=== PATIENT | female | born 1970 | race Two or more races ===

== ENCOUNTER 2019-11-27 11:07 | Inpatient (IN) | payer MEDICAID, OTHER ==
[~2019-11-27] VITALS: Ht 162.6 cm; Wt 73.3 kg
[2019-11-27] MEDS ORDERED: cefTRIAXone SOD 1,000 MG VL IM ONE (14:45)
[2019-11-27] MEDS ORDERED: KETOROLAC TROMETH 30 MG/ML 1ML VIAL IV ONE (14:45)
[2019-11-27] MEDS ORDERED: cefTRIAXone 1GM/50ML D5W 50 ML IV ONE (15:00)
[2019-11-27] MEDS ORDERED: HYDROcodone-ACET 5/325MG TAB PO ONE (15:00)
[2019-11-27 16:24] LABS: Albumin 2.9 g/dL (3.4-5.0); Calcium 9.1 mg/dL (8.5-10.1); Potassium 3.1 mmol/L (3.5-5.1)
[2019-11-27 16:29] LABS: BUN/Creatinine Ratio 8.3; Bilirubin, Total 0.3 mg/dL (0.2-1.0); Total Protein 8.5 g/dL (6.4-8.2)
[2019-11-27 17:05] LABS: Basophils # (auto) 0.1 10 ^3/uL (0-0.2); Basophils % (auto) 0.8 % (0.0-2.0); Eosinophils # (auto) 0.1 10 ^3/uL (0-0.8); Eosinophils % (auto) 1.1 % (0.0-7.0); Hematocrit 34.4 % (36.0-46.0); Hemoglobin 11.3 g/dL (12.2-16.2); Lymphocytes % (auto) 12.6 % (10.0-50.0); Mean Corpuscular Hemoglobin 27.1 pg (28.0-32.0); Mean Corpuscular Hgb Conc. 32.8 g/dL (32.0-36.0); Mean Corpuscular Volume 82.8 fL (80.0-100.0); Monocytes # (auto) 0.7 10 ^3/uL (0-1.3); Monocytes % (auto) 9.5 % (0.0-12.0); Neutrophils # (auto) 5.8 10 ^3/uL (1.6-8.6); Platelet Count (auto) 338 10^3/uL (140-450); Red Blood Cells 4.15 10^6/uL (4.0-5.20); Red Cell Distribution Width 13.7 % (11.8-14.3); White Blood Cell 7.6 10^3/uL (4.4-10.8)
[2019-11-27] MEDS ORDERED: cloNIDine 0.2 mg/24hr 7DAY PATCH TD ONE (17:15)
[2019-11-27] MEDS ORDERED: SODIUM CHLORIDE 0.9% 2,000 ML IV ONE (17:15)
[2019-11-27 17:27] LABS: Urine Bacteria NONE SEEN /hpf (None Seen); Urine Blood 3+ /uL (Negative); Urine Mucus FEW (None Seen); Urine Specific Gravity 1.025 (1.001-1.035); Urine WBC 58 /hpf (0 - 5)
[2019-11-27] MEDS ORDERED: cloNIDine HCL 0.1 MG TAB PO ONE (17:45)
[2019-11-27] MEDS ORDERED: InsuLIN REG 1unit/0.01ml Soln (100units/ml) SC ONE (19:00)
[2019-11-27] MEDS ORDERED: POTASSIUM CHL 20 Meq TABLET PO ONE (21:00)
[2019-11-27] MEDS ORDERED: TEMAZEPAM 15 MG CAP PO PRN (21:00)
[2019-11-27] MEDS ORDERED: DEXTROSE (50%) 50ML SYRG IV PRN (21:00)
[2019-11-27] MEDS ORDERED: ACETAMINOPHEN 325 MG TAB PO PRN (21:00)
[2019-11-27] MEDS ORDERED: ONDANSETRON HCL 4 MG/2 ML VIAL IV PRN (21:00)
[2019-11-27 21:42] VITALS: BP 137/81
[2019-11-27 22:09] VITALS: BP 137/81
[2019-11-27] MEDS: FAMOTIDINE 20 MG TAB PO SCH (22:23)
[2019-11-27] MEDS: SODIUM CHLORIDE 0.9% 1,000 ML IV SCH (22:23)
[2019-11-27] MEDS: CLINDAMYCIN 600MG IV 50 ML IV SCH (22:23)
--- NOTE | 2019-11-27 23:01 | NUR ---
pt state will bring a list of her home medication tomorrow
[2019-11-27] MEDS: ACCU-CHEK COMFORT CURVE STRIP VI SCH (23:11)
[2019-11-27] MEDS: InsuLIN REG 1unit/0.01ml Soln (100units/ml) SC SCH (23:11)
--- NOTE | 2019-11-28 00:32 | NUR ---
wound culture and picture taken
--- NOTE | 2019-11-28 02:04 | NUR ---
end of shift note endorse pt care to assistant casino shift manager Karol PINEDA pt [id number], no s/s of distress or sob
--- NOTE | 2019-11-28 02:33 | NUR ---
Assumed Patient Care Report taken from Anabela PINEDA. Patient is AOx4 w/ HOB at 30 degrees. No s/s of distress or SOB noted. Patient has pain upon palpation to left outer labia. Left Labia is bright pink and swollen along with foul odor. Noted small opening on left labia weeping with purulent drainage noted on pad. Pad has now been changed. POC discussed with patient, patient verbally agreed to understanding. Will continue to monitor.
[2019-11-28] MEDS: cloNIDine HCL 0.1 MG TAB PO PRN ×2 (05:02→12:51)
[2019-11-28] MEDS: CLINDAMYCIN 600MG IV 50 ML IV SCH ×3 (05:49→22:30)
[2019-11-28] MEDS: ACCU-CHEK COMFORT CURVE STRIP VI SCH ×3 (05:49→18:05)
[2019-11-28] MEDS: InsuLIN REG 1unit/0.01ml Soln (100units/ml) SC SCH ×3 (05:59→18:07)
[2019-11-28 06:00] VITALS: BP 172/80
--- NOTE | 2019-11-28 07:45 | NUR ---
opening note assumed care of patient from noc rn. Patient is AOx4 no s/s of distress noted. Bed is in lowest locked position, call light within reach and side rails up x2. Updated patient on plan of care and patient verbalized understanding. Will continue to monitor.
[2019-11-28 07:47] LABS: Basophils # (auto) 0.1 10 ^3/uL (0-0.2); Basophils % (auto) 0.9 % (0.0-2.0); Eosinophils # (auto) 0.1 10 ^3/uL (0-0.8); Hematocrit 30.4 % (36.0-46.0); Lymphocytes # (auto) 1.7 10 ^3/uL (0.4-5.4); Lymphocytes % (auto) 22.5 % (10.0-50.0); Mean Corpuscular Hemoglobin 27.4 pg (28.0-32.0); Mean Corpuscular Hgb Conc. 33.1 g/dL (32.0-36.0); Mean Corpuscular Volume 82.8 fL (80.0-100.0); Monocytes # (auto) 0.8 10 ^3/uL (0-1.3); Monocytes % (auto) 11.2 % (0.0-12.0); Neutrophils # (auto) 4.7 10 ^3/uL (1.6-8.6); Neutrophils % (auto) 63.4 % (37.0-80.0); Platelet Count (auto) 310 10^3/uL (140-450); Red Blood Cells 3.67 10^6/uL (4.0-5.20); Red Cell Distribution Width 13.2 % (11.8-14.3); White Blood Cell 7.5 10^3/uL (4.4-10.8)
[2019-11-28 07:56] LABS: Calcium 8.1 mg/dL (8.5-10.1); Potassium 3.1 mmol/L (3.5-5.1)
[2019-11-28 07:58] LABS: BUN/Creatinine Ratio 11.4
[2019-11-28 09:00] VITALS: BP 156/87
--- NOTE | 2019-11-28 09:35 | NUR ---
Dr laila Smith at bedside, MD to transfer care to another MD.
--- NOTE | 2019-11-28 11:10 | NUR ---
physician rounding Dr. Ramachandran at bedside. MD updated patient on plan of care, patient verbalized understanding.
--- NOTE | 2019-11-28 11:12 | NUR ---
WOUND CARE NOTE: Wound care in to see patient per wound care request regarding "vaginal abscess". Bedside nurse took photograph of patient's wound upon admission for reference. Patient is 49 years old female admitted for Abscess. Patient is resting in bed in Rm. 293B. Patient is awake, alert and oriented. Patient is in no stated pain at this time, however she reported that her labial is painful to touch. Patient is ambulatory and self turning and repositioning. Her Gino score is 20. Patient's nurse, MIRIAM Tuttle and Dr. Junior at bedside to see patient. Noted patient's L labia majora is edematous and erythremic. There's multi white specks on pores, appears to be seropurulent drainage coming out from skin pores. Patient is ambulatory and advised to cleansed labial with mild soap and warm water,pat dry and use sanitary napkin and disposable underwear per MD order. Patient has pending surgical consult. RECOMMENDATION: Continue with BID/PRN cleaning using warm water and cover with sanitary pad to labial abscess per MD order,surgical consult, continue monitoring by wound care while patient is hospitalized. Addendum: 11/28/19 at 1709 by Ammy Urbina RN Amended: Links added.
--- NOTE | 2019-11-28 12:10 | NUR ---
efrain KRAUSE Placed page to Dr. Ramachandran awaiting call back.
--- NOTE | 2019-11-28 12:15 | NUR ---
Spoke with Spoke with DR. ortiz in her office, per MD she will in put orders for pain medication. Will follow through.
[2019-11-28] MEDS: cefTRIAXone 1GM/50ML D5W 50 ML IV SCH (12:18)
[2019-11-28] MEDS: FAMOTIDINE 20 MG TAB PO SCH ×2 (12:18→22:30)
[2019-11-28] MEDS: SODIUM CHLORIDE 0.9% 1,000 ML IV SCH ×2 (12:35→18:09)
--- NOTE | 2019-11-28 12:49 | NUR ---
efrain KRAUSE Placed page to Dr. Ramachandran awaiting call back.
--- NOTE | 2019-11-28 12:55 | NUR ---
Received call back Received call back from Dr. Ramachandran. Updated MD on patient status, new orders received. Will follow through.
[2019-11-28 13:00] VITALS: BP_SYST 125; BP_SYST 149; BP_DIAS 50; BP_DIAS 84
[2019-11-28] MEDS: HYDROcodone-ACET 5/325MG TAB PO PRN ×2 (13:06→19:53)
[2019-11-28] MEDS ORDERED: POTASSIUM CHL 20 Meq TABLET PO ONE (15:00)
--- NOTE | 2019-11-28 16:35 | NUR ---
efrain KRAUSE Placed page to Dr. Ramachandran regarding patient B/P awaiting call back.
[2019-11-28 16:58] VITALS: BP 182/90
--- NOTE | 2019-11-28 17:17 | NUR ---
paged graphic production artist paged graphic production artist regarding patients B/P. Awaiting call back.
--- NOTE | 2019-11-28 17:20 | NUR ---
RECEIVED CALL BACK Received call back from Provider, new orders received, will follow through.
[2019-11-28] MEDS ORDERED: amLODIPine BESYLATE 5 MG TAB PO ONE (17:30)
--- NOTE | 2019-11-28 17:40 | NUR ---
consult consolation for surgery unable to be placed, Dr. Iniguez not able to consult patient for cyst. Per MD Babar could be consulted, but not able to be consulted.
--- NOTE | 2019-11-28 19:20 | NUR ---
Opening Shift Note Assumed patient care from Alberto Shift RN. Patient is AOx4 no s/s of distress noted. Bed is in lowest locked position, call light within reach and side rails up x2. Updated patient on plan of care and patient verbalized understanding. Will continue to monitor.
[2019-11-28 22:00] VITALS: BP 152/79
[2019-11-29] MEDS: ACCU-CHEK COMFORT CURVE STRIP VI SCH ×4 (00:16→18:09)
[2019-11-29] MEDS: InsuLIN REG 1unit/0.01ml Soln (100units/ml) SC SCH ×4 (00:20→18:12)
[2019-11-29] MEDS: HYDROcodone-ACET 5/325MG TAB PO PRN ×3 (04:30→20:25)
[2019-11-29 05:00] VITALS: BP 164/86
[2019-11-29] MEDS: CLINDAMYCIN 600MG IV 50 ML IV SCH ×3 (05:40→22:25)
[2019-11-29] MEDS: cloNIDine HCL 0.1 MG TAB PO PRN (05:40)
[2019-11-29 06:47] LABS: Basophils # (auto) 0.1 10 ^3/uL (0-0.2); Eosinophils # (auto) 0.2 10 ^3/uL (0-0.8); Eosinophils % (auto) 2.3 % (0.0-7.0); Hematocrit 31.9 % (36.0-46.0); Hemoglobin 10.6 g/dL (12.2-16.2); Lymphocytes # (auto) 1.8 10 ^3/uL (0.4-5.4); Lymphocytes % (auto) 22.7 % (10.0-50.0); Mean Corpuscular Hemoglobin 27.5 pg (28.0-32.0); Mean Corpuscular Hgb Conc. 33.1 g/dL (32.0-36.0); Mean Corpuscular Volume 83.1 fL (80.0-100.0); Monocytes % (auto) 12.3 % (0.0-12.0); Neutrophils # (auto) 4.9 10 ^3/uL (1.6-8.6); Neutrophils % (auto) 61.7 % (37.0-80.0); Platelet Count (auto) 291 10^3/uL (140-450); Red Blood Cells 3.84 10^6/uL (4.0-5.20); Red Cell Distribution Width 13.7 % (11.8-14.3); White Blood Cell 7.9 10^3/uL (4.4-10.8)
[2019-11-29 06:59] LABS: Calcium 8.3 mg/dL (8.5-10.1); Magnesium 1.9 mg/dL (1.6-2.6); Potassium 3.1 mmol/L (3.5-5.1)
[2019-11-29 07:01] LABS: BUN/Creatinine Ratio 7.5
--- NOTE | 2019-11-29 07:20 | NUR ---
Assumed care Patient in bed AOx4 Chinese speaker. No s/s of distress noted. No pain reported. Patient updated on POC and to call for assistance as needed. She verbalized understanding and demonstration on how to use call fritz. Bed in lowest locked position, call light within reach, side rails x2 up. Will continue care.
[2019-11-29] MEDS: SODIUM CHLORIDE 0.9% 1,000 ML IV SCH ×2 (07:40→14:15)
[2019-11-29 09:00] VITALS: BP 143/68
[2019-11-29] MEDS: cefTRIAXone 1GM/50ML D5W 50 ML IV SCH (09:43)
[2019-11-29] MEDS: FAMOTIDINE 20 MG TAB PO SCH ×2 (09:43→22:24)
[2019-11-29] MEDS: amLODIPine BESYLATE 5 MG TAB PO SCH (09:44)
[2019-11-29 13:00] VITALS: BP 152/79
[2019-11-29] MEDS ORDERED: POTASSIUM CHL 20 Meq TABLET PO ONE (14:15)
[2019-11-29] MEDS ORDERED: LISINOPRIL 20 MG TAB PO ONE (14:15)
[2019-11-29] MEDS ORDERED: MAGNESIUM SULFATE 1GM/100ML 100 ML IV ONE (14:15)
--- NOTE | 2019-11-29 15:10 | NUR ---
Called [facility] pharmacy for Med-Rec Called [facility] at to obtain Med-Rec for patient. Pharmacy located in [place], [place]. Per pharmacist he will be faxing information as he is unable to share information over the phone at this time. Will be awaiting fax to update home medications on EMAR.
--- NOTE | 2019-11-29 15:23 | NUR ---
Nutrition Assessment Notes Please refer to link for full assessment notes. Est Energy needs: 7019-0431 kcals (20-23 kcal/kgBW) Est Protein needs: 59-74 gms/day (0.8-1.0 gm/kgBW) Will continue to monitor and reassess prn. Addendum: 11/29/19 at [address] Amended: Links added.
[2019-11-29 16:38] VITALS: BP 152/90
--- NOTE | 2019-11-29 19:30 | NUR ---
Opening Shift Note Patient is AOx4. No s/s of distress or SOB at this time. No pain noted at this time. NUTRITION INTERN translated and said, "Patient wants to leave tomorrow if she doesn't see the doctor about her infection." Per morning shift RN, patient was given education on the reason she is still in the hospital and about her antibiotics. Per RN she explained an OBGYN was called in to consult with her by tomorrow. POC discussed with patient using inspector plumbing, patient said, "okay." Bed locked in lowest position and Call light is within reach. Will continue to monitor.
[2019-11-29 21:46] VITALS: BP 150/78
[2019-11-30] MEDS: ACCU-CHEK COMFORT CURVE STRIP VI SCH ×4 (00:06→18:26)
[2019-11-30] MEDS: InsuLIN REG 1unit/0.01ml Soln (100units/ml) SC SCH ×4 (00:07→18:28)
[2019-11-30 05:00] VITALS: BP 157/82
[2019-11-30] MEDS: CLINDAMYCIN 600MG IV 50 ML IV SCH ×3 (05:43→22:11)
[2019-11-30] MEDS: HYDROcodone-ACET 5/325MG TAB PO PRN ×2 (05:43→17:09)
[2019-11-30 07:36] LABS: Magnesium 2.1 mg/dL (1.6-2.6); Potassium 3.3 mmol/L (3.5-5.1)
[2019-11-30] MEDS: cefTRIAXone 1GM/50ML D5W 50 ML IV SCH (08:35)
[2019-11-30] MEDS: FAMOTIDINE 20 MG TAB PO SCH ×2 (08:36→22:12)
[2019-11-30] MEDS: LISINOPRIL 20 MG TAB PO SCH (08:36)
[2019-11-30] MEDS: amLODIPine BESYLATE 5 MG TAB PO SCH (08:37)
[2019-11-30 08:39] VITALS: BP 185/91
[2019-11-30] MEDS: SODIUM CHLORIDE 0.9% 1,000 ML IV SCH (10:15)
[2019-11-30] MEDS: cloNIDine HCL 0.1 MG TAB PO PRN (12:58)
[2019-11-30 13:01] VITALS: BP 174/96
[2019-11-30] MEDS ORDERED: POTASSIUM CHL 20 Meq TABLET PO ONE (13:30)
[2019-11-30] MEDS ORDERED: IOHEXOL 300 MG/ML 100ML BOTTLE IJ ONE (14:42)
[2019-11-30] MEDS ORDERED: GABA300C10 PO (15:33)
[2019-11-30] MEDS ORDERED: AMLO5TAB15 PO (15:33)
[2019-11-30] MEDS ORDERED: METF-370 PO (15:33)
[2019-11-30] MEDS ORDERED: ATOR40TA52 PO (15:33)
[2019-11-30] MEDS ORDERED: METO25TA5 PO (15:33)
[2019-11-30] MEDS ORDERED: INSU1INJ19 SC (15:33)
--- NOTE | 2019-11-30 16:10 | NUR ---
Jordy WILDER AT BEDSIDE TO ASSESS PATIENT. Jordy ASSESSING PATIENTS INGUINAL ABSCESS. INFORMED PATIENT HAS NOT HAD A FEVER THIS DAY. INFORMED OF PATIENTS SYMPTOMS OF PAIN AND TENDERNESS AT SITE. Jordy WILDER SPEAKING WITH Jordy LEE STATING THAT THIS PATIENT REQUIRES HIGHER LEVEL OF CARE AND AGGRESSIVE ANTIBIOTICS AT THIS TIME. RECEIVED NEW ORDERS FOR STAT ABD/PELVIS CT. WILL FOLLOW THROUGH.
[2019-11-30 16:32] VITALS: BP 160/91
--- NOTE | 2019-11-30 16:38 | NUR ---
CALLED RADIOLOGY TO INFORM PATIENT IS READY FOR CT ABD/PELVIS.
--- NOTE | 2019-11-30 18:00 | NUR ---
PATIENT WHEELED DOWN VIA WHEELCHAIR TO RADIOLOGY FOR STAT CT BY SUPERVISOR ADVERTISING DISPATCH CLERKS.
[2019-11-30 18:21] VITALS: BP 157/71
--- NOTE | 2019-11-30 19:59 | NUR ---
RECEIVED PATIENT FROM DAY SHIFT RN. PATENT RESTING IN BED. NO S/S OF DISTRESS NOTED. C/O PAIN @ 4/10 AFTER MEDICATION ADMINISTERED EARLIER. REINFORCED SCHEDULE OF PAIN MANAGEMENT, WILL COME BACK FOR PAIN MEDICATION WHEN THE TIME IS DUE AND PER PATIENT REQUESTS. PATIENT VERBALIZED UNDERSTANDING. REDNESS AND SWELLING NOTED ON RIGHT INGUINAL AREA WITH LITTLE PUS OUT. POC INSTRUCTED AND ENCOURAGED PATIENT TO CALL FOR PRODUCT SAFETY COORDINATOR IF NEEDED. BED IN LOWEST POSITION WITH SIDE RAILS UP X 2. CALL GARCIA WITHIN REACH. CONTINUE TO MONITOR FOR CHANGES Q1H AND PRN.
[2019-11-30 22:00] VITALS: BP 148/85
[2019-11-30] MEDS ORDERED: INSULIN LANTUS (GLARGINE) 1 /0.01ml (100units/ml) SC SCH (22:00)
[2019-11-30] MEDS: ATORVASTATIN 20 MG TAB PO SCH (22:11)
[2019-11-30] MEDS: METOPROLOL TARTRATE 25 MG TAB PO SCH (22:12)
[2019-12-01] MEDS: ACCU-CHEK COMFORT CURVE STRIP VI SCH ×4 (00:09→18:02)
[2019-12-01] MEDS: InsuLIN REG 1unit/0.01ml Soln (100units/ml) SC SCH ×4 (00:09→17:56)
[2019-12-01] MEDS: HYDROcodone-ACET 5/325MG TAB PO PRN ×4 (00:10→23:17)
--- NOTE | 2019-12-01 00:10 | NUR ---
PATIENT C/O PAIN @ 10/18, MEDICATED ORDERED. ACCU-CHECK, BS 135, INSULIN GIVEN ORDERED. CONTINUE TO MONITOR.
--- NOTE | 2019-12-01 01:02 | NUR ---
REASSESSED PAIN @ 05/18. CONTINUE TO MONITOR.
--- NOTE | 2019-12-01 03:32 | NUR ---
PATIENT SLEEPING. NO S/S OF DISTRESS AND PAIN NOTED. CONTINUE CARE.
[2019-12-01] MEDS: SODIUM CHLORIDE 0.9% 1,000 ML IV SCH (04:00)
[2019-12-01 05:00] VITALS: BP 138/76
[2019-12-01] MEDS: CLINDAMYCIN 600MG IV 50 ML IV SCH ×3 (05:41→21:55)
--- NOTE | 2019-12-01 05:41 | NUR ---
ACCU-CHECK, BS 99. NO COVERAGE. CONTINUE TO MONITOR.
[2019-12-01 07:19] LABS: Potassium 3.4 mmol/L (3.5-5.1)
[2019-12-01 07:23] LABS: BUN/Creatinine Ratio 6.6; Calcium 8.8 mg/dL (8.5-10.1)
[2019-12-01 09:00] VITALS: BP 159/89
[2019-12-01] MEDS: cefTRIAXone 1GM/50ML D5W 50 ML IV SCH (09:46)
[2019-12-01] MEDS: METOPROLOL TARTRATE 25 MG TAB PO SCH ×2 (09:48→21:56)
[2019-12-01] MEDS: FAMOTIDINE 20 MG TAB PO SCH ×2 (09:48→21:56)
[2019-12-01] MEDS: LISINOPRIL 20 MG TAB PO SCH (09:48)
[2019-12-01] MEDS: amLODIPine BESYLATE 5 MG TAB PO SCH (09:49)
--- NOTE | 2019-12-01 10:30 | NUR ---
DR. CEVALLOS ROUNDING WITH MYSELF- DISCUSSED WITH PATIENT ENTIRE POC INCLUDING HER TEST RESULTS, TREATMENT PLANS AND PLANS TO TRANSFER TO HIGHER LEVEL OF CARE. PERSONALIZED LIVING MANAGER WAS USED AND THE PATIENT VERBALIZED UNDERSTANDING OF CARE.
--- NOTE | 2019-12-01 12:08 | NUR ---
4511 12/01/19 - Faxed to [facility] transfer center at [phone], [facility] transfer center at [phone] and [facility] at [phone], face sheet, H/P, labs, meds, TILTR[employer]OR [employer]IEF consult. Spoke with [facility] transfer center coordinator who confirmed receiving all faxed clinicals which will be send to requesting service for review. Transfer pending review and bed availability. Addendum: 12/01/19 at 1717 by Sarah Rey RN [id number] 12/01/2019 - Faxed to [facility] at [phone] COVID 19 results, signed transfer back agreement. Accepting [facility] is Dr Oakes, pending bed assignment.
[2019-12-01] MEDS ORDERED: POTASSIUM CHL 20 Meq TABLET PO ONE (12:30)
--- NOTE | 2019-12-01 12:52 | NUR ---
MIDLINE SPOKE WITH PATIENT REGARDING MIDLINE ORDERED FROM DR. LEE WITH ELIAZAR RN TRANSLATING IN [place]. PATIENT REFUSED THE MIDLINE AT THIS TIME STATING SHE HAS BEEN POKED TOO MANY TIMES AND DOES NOT WANT IT. WE EDUCATED PATIENT ON THE RATIONAL OF THE LINE, AND THE BENEFITS OF THE MIDLINE AND SHE STILL REFUSED. I NOTIFIED THE PRIMARY RN SOILA OF PTS REFUSAL.
[2019-12-01 13:00] VITALS: BP 150/86
--- NOTE | 2019-12-01 13:13 | NUR ---
PAGED DR. CEVALLOS TO INFORM HER PATIENT REFUSED MIDLINE. AWAITING RETURN PHONE CALL.
[2019-12-01] MEDS: metroNIDAZOLE 500MG/100ML 100 ML IV SCH ×2 (14:05→21:55)
[2019-12-01 16:34] VITALS: BP 158/89
--- NOTE | 2019-12-01 16:42 | NUR ---
Called [facility] spoke with Mukesh public safety dispatcher gave update on patient's condition and the need for transfer to [facility], placed patient on WILL CALL.
--- NOTE | 2019-12-01 19:35 | NUR ---
RECEIVED PATIENT FROM DAY SHIFT RN. PATENT RESTING IN BED. NO S/S OF DISTRESS NOTED. DENIED PAIN AT THIS TIME. REDNESS AND SWELLING NOTED ON RIGHT INGUINAL AREA WITH LITTLE PUS OUT. POC INSTRUCTED AND ENCOURAGED PATIENT TO CALL FOR NURSE EDUCATOR IF NEEDED. BED IN LOWEST LOCKED POSITION WITH SIDE RAILS UP X 2. CALL GARCIA WITHIN REACH. CONTINUE TO MONITOR FOR CHANGES Q1H AND PRN.
--- NOTE | 2019-12-01 20:52 | NUR ---
COVID SWAB COLLECTED AND SENT. PATIENT TOLERATED WELL. CONTINUE TO MONITOR.
[2019-12-01] MEDS: ATORVASTATIN 20 MG TAB PO SCH (21:55)
--- NOTE | 2019-12-01 21:57 | NUR ---
RECEIVED CALL FROM [facility], UPDATED THE TIME WHEN THE RESULT COMES OUT FOR COVID TEST. NO BED ASSIGNED FOR NOW. CONTINUE TO MONITOR.
[2019-12-01 22:00] VITALS: BP 166/91
[2019-12-01] MEDS ORDERED: INSULIN LANTUS (GLARGINE) 1 /0.01ml (100units/ml) SC SCH (22:00)
--- NOTE | 2019-12-01 23:17 | NUR ---
PATIENT C/O PAIN @ 10/18, MEDICATED ORDERED. CONTINUE TO MONITOR.
[2019-12-02] MEDS: ACCU-CHEK COMFORT CURVE STRIP VI SCH ×4 (00:25→17:16)
[2019-12-02] MEDS: InsuLIN REG 1unit/0.01ml Soln (100units/ml) SC SCH ×4 (00:26→17:18)
--- NOTE | 2019-12-02 00:27 | NUR ---
ACCU-CHECK, BS 156, INSULIN GIVEN ORDERED. CONTINUE TO MONITOR.
[2019-12-02] MEDS: SODIUM CHLORIDE 0.9% 1,000 ML IV SCH (01:11)
--- NOTE | 2019-12-02 02:06 | NUR ---
PATIENT SLEEPING. NO S/S OF DISTRESS AND PAIN NOTED. CONTINUE TO MONITOR.
[2019-12-02 05:00] VITALS: BP 142/75
[2019-12-02] MEDS: metroNIDAZOLE 500MG/100ML 100 ML IV SCH ×2 (05:32→14:03)
[2019-12-02] MEDS: CLINDAMYCIN 600MG IV 50 ML IV SCH ×2 (05:32→14:08)
--- NOTE | 2019-12-02 05:33 | NUR ---
ACCU-CHECK, BS 93. NO COVERAGE. CONTINUE TO MONITOR.
[2019-12-02 08:35] VITALS: BP 142/80
[2019-12-02] MEDS: METOPROLOL TARTRATE 25 MG TAB PO SCH (09:20)
[2019-12-02] MEDS: cefTRIAXone 1GM/50ML D5W 50 ML IV SCH (09:20)
[2019-12-02] MEDS: amLODIPine BESYLATE 5 MG TAB PO SCH (09:21)
[2019-12-02] MEDS: FAMOTIDINE 20 MG TAB PO SCH (09:21)
[2019-12-02] MEDS: LISINOPRIL 20 MG TAB PO SCH (09:22)
--- NOTE | 2019-12-02 10:38 | NUR ---
I faxed negative COVID test to [facility].
--- NOTE | 2019-12-02 10:51 | NUR ---
Nutrition Followup Note Wt 73.3kg Pt was with Rn at time of rounds. Pt is awaiting transfer to acute care rehab facility per MD discharge note pending negative covid test. Pt diet was advanced to CCHO 45g on 11/30, pt is with a fair appetite aeb pt with 65% avg po intake x 2 days per Rn note Est Energy needs: 1321-8010 kcals (20-23 kcal/kgBW) Est Protein needs: 59-74 gms/day (0.8-1.0 gm/kgBW) Will continue to monitor and reassess prn. Labs: K 3.4L, BUN 5L, Alb 2.9L BM: pt with no BM noted per Rn note Skin: BS 18 mod risk, full details in healthcare management consultant note PES: Resolved pt diet adv to CCHO 45g 1) Increased nutrient needs r/t pt with a restricted diet aeb Pt with a Clear Liquid diet 2) Food and nutrition related knowledge deficit r/t dietary non-compliance aeb hyperglycemia, elev A1c, dyslipidemia 3) Altered nutrition related lab values r/t current/chronic medical condition aeb hyperglycemia, elev A1c, dyslipidemia Comments Will continue to monitor PO status, skin status, pertinent labs and weight trends. Will f/u in 3-5 days. 1) Continue to carefully monitor pt PO intake to meet at least 75% of meals 2) Gradually advance pt to oral CCHO 45g/Cardiac 2gNa,lowfat,lowphos diet when medically feasible and as tolerated 3) Refer pt to RD/CDE for nutrition education upon D/C 4) Continue current plan of care Expected Outcomes/Goals: Pt appetite to improve Pt to advance to a solid oral diet Pt to see a RD/CDE after D/C Pt labs to improve
[2019-12-02] MEDS: HYDROcodone-ACET 5/325MG TAB PO PRN ×2 (11:25→21:16)
--- NOTE | 2019-12-02 12:02 | NUR ---
I spoke with Erna at [facility] Transfer [facility], re-faxed her completed transfer back agreement as requested.
[2019-12-02 12:41] VITALS: BP 168/94
--- NOTE | 2019-12-02 12:52 | NUR ---
I called [facility] Transfer Center [phone] and spoke with Erna, she said they have everything they need on this patient, they are just waiting for a bed to become available. Per Erna, they will call nurse's station when a bed becomes available. [facility] remains on will call.
[2019-12-02] MEDS ORDERED: hydrALAZINE HCL 25 MG TAB PO PRN (14:45)
[2019-12-02] MEDS ORDERED: POTASSIUM CHL 20 Meq TABLET PO ONE (14:45)
[2019-12-02 16:50] VITALS: BP_SYST 136; BP_SYST 167; BP_DIAS 77; BP_DIAS 88
--- NOTE | 2019-12-02 17:17 | NUR ---
Elevated Blood Pressure Patient's blood pressure is elevated 167/88. Administered PRN Hydralazine as ordered. Will reassess as per protocol.
[2019-12-02 18:17] VITALS: BP 136/77
--- NOTE | 2019-12-02 18:17 | NUR ---
Blood Pressure Rechecked patient's blood pressure, 136/77. HR 73.
--- NOTE | 2019-12-02 19:55 | NUR ---
[place] called, bed available: Spoke with Savana from [facility] stating that a bed is available for the patient. Patient to be transferred to [address], room 10 bed 1. Number given to give report to accepting RN via number [phone]. ext: [phone]. Will carry out transfer.
--- NOTE | 2019-12-02 19:59 | NUR ---
Spoke with [facility]: Spoke with home mission worker [facility] regarding patient having a bed open in [place]. Verified patient and [facility] to arrive at 2100 to transport patient.
--- NOTE | 2019-12-02 20:05 | NUR ---
Spoke with [place] Transfer center: Spoke with Heather from [facility] to confirm ETO time given by CHELSEA. [facility] to arrive to pickle solution maker patient for transport at 2100. Heathre verbalized understanding.
--- NOTE | 2019-12-02 20:24 | NUR ---
Report given to Stephanie Mccullough RN: Report given to Stella Mccullough RN accepting patient for transfer. Called via number [phone]. ext: [phone]. All questions answered.
--- NOTE | 2019-12-02 20:30 | NUR ---
Image transfer request: Image transfer request placed. Spoke with radiology and retrieved image transfer disk and placed in transfer packet.
[2019-12-02 20:31] VITALS: BP 158/81
--- NOTE | 2019-12-02 20:45 | NUR ---
Spoke with Hospitalist Brianne: Spoke with [facility] Decker regarding medications patient will be given when transferred to [facility]. Received and verified transfer medications with hospitalist.
--- NOTE | 2019-12-02 21:10 | NUR ---
Unable to reach patient contact: Unable to reach patients through phone number to notify of transfer. Attempted to call once. Notified patient. Patient verbalized understanding and is to notify herself.
--- NOTE | 2019-12-02 21:30 | NUR ---
Discharge wound photo taken.
--- NOTE | 2019-12-02 21:37 | NUR ---
Discharge Transfers Patient is being transferred to [facility] for higher level of care. Patient is to follow up with accepting doctor Devora at the receiving facility, patient going to [facility] after report given. Patient given and signed transfer and discharge paper work. Transferred with all of patients belongings with [facility]. [facility] given report and received discharge transfer paper work.
--- NOTE | 2019-12-02 22:37 | NUR ---
Report given to Stephanie Mccullough RN: Report given to Stella Mccullough RN accepting patient for transfer. Called via number [phone]. ext: [phone]. All questions answered. Addendum: 12/02/19 at 2241 by Radha Gonzalez RN RN Wrong time: Time meant for 2023
== END 2019-12-02 21:37 | disposition short-term general hospital (02) | DRG 531 ==
LOC: ER 11:07 → OVERFLOW 11:08 → WEST WING 21:42
PROVIDERS: ADMIT Nurse Practitioner; ATTEND Internal Medicine
DX: N75.1 Abscess of Bartholin's gland (principal); N76.0 Acute vaginitis; N75.0 Cyst of Bartholin's gland; E11.65 Type 2 diabetes mellitus with hyperglycemia; I10 Essential (primary) hypertension; E87.6 Hypokalemia; N17.0 Acute kidney failure with tubular necrosis; E78.5 Hyperlipidemia, unspecified; M72.6 Necrotizing fasciitis; K59.00 Constipation, unspecified; Z20.828 Contact with and (suspected) exposure to other viral communicable diseases; Z91.19 Patient's noncompliance with other medical treatment and regimen; Z95.1 Presence of aortocoronary bypass graft; B96.20 Unspecified Escherichia coli [E. coli] as the cause of diseases classified elsewhere
CPT/HCPCS: 36415; 74177; 80048; 80053; 80061; 81001; 82962; 83036; 83735; 84132; 84443; 84702; 85025; 87077; 87086; 87186; 87205; 87426; G0378; J0696; J1815; J1885; J3490

== ENCOUNTER → 2021-01-07 | Outpatient (CLI) | payer OTHER ==
[~2021-01-07] MED LIST: AMLO-489 PO; ATOR40TA52 PO; GABA300C10 PO; INSU1INJ19 SC; KETOROLAC TROMETH 60MG/2ML VIAL IM ONE; KETOROLAC TROMETH 60MG/2ML VIAL ONE; METF-370 PO; METO25TA5 PO; cloNIDine HCL 0.1 MG TAB ONE; cloNIDine HCL 0.1 MG TAB PO ONE
[2021-01-07 15:40] VITALS: BP 226/119
[2021-01-07 16:21] VITALS: BP 219/119
[2021-01-07 16:40] VITALS: BP 199/114
[2021-01-07 16:55] VITALS: BP 186/106
[2021-01-07 17:10] VITALS: BP 151/99
== END | disposition home or self-care (01) ==
LOC: CHF HDHVI 15:42
PROVIDERS: ATTEND Internal Medicine
DX: I10 Essential (primary) hypertension (principal); R42 Dizziness and giddiness; E11.9 Type 2 diabetes mellitus without complications; I25.10 Atherosclerotic heart disease of native coronary artery without angina pectoris; E78.5 Hyperlipidemia, unspecified; Z95.1 Presence of aortocoronary bypass graft
CPT/HCPCS: 96372; G0463; J1885

== ENCOUNTER → 2021-01-20 | Outpatient (CLI) | payer OTHER ==
[~2021-01-20] MED LIST changes: +IOHEXOL 350 MG/ML 100ML IJ ONE; +KETOROLAC TROMETH 30 MG/ML 1ML VIAL IV ONE; +SODIUM CHLORIDE 0.9% 250 ML IV ONE
[2021-01-20 09:55] VITALS: BP 210/108
[2021-01-20 10:25] VITALS: BP 204/108
[2021-01-20 11:25] VITALS: BP 178/95
[2021-01-20 12:40] VITALS: BP 158/88
== END | disposition home or self-care (01) ==
LOC: Rad HDHVI 09:39
PROVIDERS: ATTEND Internal Medicine
DX: I10 Essential (primary) hypertension (principal); R94.4 Abnormal results of kidney function studies; E11.9 Type 2 diabetes mellitus without complications; I25.10 Atherosclerotic heart disease of native coronary artery without angina pectoris; E78.5 Hyperlipidemia, unspecified; Z95.1 Presence of aortocoronary bypass graft
CPT/HCPCS: 36415; 74177; 82565; 84520; 96372; 96374; G0463; J1885; J7050; Q9967; 96360; 96366; 96375

== ENCOUNTER 2021-06-11 06:48 | Inpatient (IN) | payer MEDICAID, OTHER ==
[~2021-06-11] VITALS: Ht 162.6 cm; Wt 68.0 kg
[~2021-06-11 06:48] MED LIST changes: -IOHEXOL 350 MG/ML 100ML IJ ONE; -KETOROLAC TROMETH 30 MG/ML 1ML VIAL IV ONE; -KETOROLAC TROMETH 60MG/2ML VIAL IM ONE; -KETOROLAC TROMETH 60MG/2ML VIAL ONE; -SODIUM CHLORIDE 0.9% 250 ML IV ONE; -cloNIDine HCL 0.1 MG TAB ONE; -cloNIDine HCL 0.1 MG TAB PO ONE
[2021-06-11 07:51] LABS: Basophils # (auto) 0.1 10 ^3/uL (0-0.2); Basophils % (auto) 1.2 % (0.0-2.0); Eosinophils # (auto) 0.2 10 ^3/uL (0-0.8); Eosinophils % (auto) 1.6 % (0.0-7.0); Hematocrit 31.8 % (36.0-46.0); Hemoglobin 10.8 g/dL (12.2-16.2); Lymphocytes # (auto) 1.3 10 ^3/uL (0.4-5.4); Lymphocytes % (auto) 13.7 % (10.0-50.0); Mean Corpuscular Hgb Conc. 33.9 g/dL (32.0-36.0); Mean Corpuscular Volume 82.6 fL (80.0-100.0); Monocytes # (auto) 0.7 10 ^3/uL (0-1.3); Monocytes % (auto) 6.9 % (0.0-12.0); Neutrophils # (auto) 7.5 10 ^3/uL (1.6-8.6); Neutrophils % (auto) 76.6 % (37.0-80.0); Red Blood Cells 3.85 10^6/uL (4.0-5.20); Red Cell Distribution Width 13.6 % (11.8-14.3); White Blood Cell 9.8 10^3/uL (4.4-10.8)
[2021-06-11 08:05] LABS: INR 0.99 (0.9-1.15); Partial Thromboplastin Time 26.6 sec (23.6-33.0)
[2021-06-11 08:11] LABS: Albumin 3.1 g/dL (3.4-5.0); Calcium 8.8 mg/dL (8.5-10.1); Magnesium 2.7 mg/dL (1.6-2.6); Potassium 4.8 mmol/L (3.5-5.1)
[2021-06-11 08:12] LABS: Urine Bacteria FEW /hpf (None Seen); Urine Blood Negative /uL (Negative); Urine Specific Gravity 1.017 (1.001-1.035); Urine WBC 6 /hpf (0 - 5)
[2021-06-11 08:18] LABS: BUN/Creatinine Ratio 26.9; Bilirubin, Total 0.5 mg/dL (0.2-1.0); Total Protein 7.6 g/dL (6.4-8.2)
[2021-06-11] MEDS ORDERED: ASPirin 81 mg TAB PO ONE (08:45)
[2021-06-11] MEDS ORDERED: SODIUM CHLORIDE 0.9% 1,000 ML IV ONE (08:45)
[2021-06-11] MEDS ORDERED: SPIRONOLACTONE 25 MG TAB PO ONE (10:45)
[2021-06-11] MEDS ORDERED: FUROSEMIDE 40 MG/4 ML VIAL IV ONE (10:45)
[2021-06-11] MEDS ORDERED: cefTRIAXone 1GM/50ML D5W 50 ML IV ONE (10:45)
[2021-06-11] MEDS ORDERED: ENOXAPARIN SOD 80 MG/0.8ML SYRINGE SC ONE (11:15)
[2021-06-11] MEDS ORDERED: ONDANSETRON HCL 4 MG/2 ML VIAL IV PRN (12:00)
[2021-06-11] MEDS ORDERED: NITROGLYCERIN 0.4 MG SL TAB SL PRN (12:00)
[2021-06-11] MEDS ORDERED: DOCUSATE SOD 100 MG CAP PO PRN (12:00)
[2021-06-11] MEDS ORDERED: MORPHINE SULFATE INJ 2 MG/ml SYRG IV PRN (12:00)
[2021-06-11] MEDS ORDERED: HEPARIN SODIUM (PORCINE) 5000 UNITS/ML 1ML VIAL IV ONE ×3 (16:30→18:30)
[2021-06-11 17:03] LABS: Basophils # (auto) 0.1 10 ^3/uL (0-0.2); Basophils % (auto) 1.1 % (0.0-2.0); Eosinophils # (auto) 0.1 10 ^3/uL (0-0.8); Eosinophils % (auto) 1.4 % (0.0-7.0); Hematocrit 31.9 % (36.0-46.0); Hemoglobin 10.8 g/dL (12.2-16.2); Lymphocytes # (auto) 2.4 10 ^3/uL (0.4-5.4); Lymphocytes % (auto) 25.1 % (10.0-50.0); Mean Corpuscular Hemoglobin 27.7 pg (28.0-32.0); Mean Corpuscular Hgb Conc. 33.8 g/dL (32.0-36.0); Mean Corpuscular Volume 82.1 fL (80.0-100.0); Monocytes # (auto) 0.8 10 ^3/uL (0-1.3); Monocytes % (auto) 8.5 % (0.0-12.0); Neutrophils % (auto) 63.9 % (37.0-80.0); Nucleated Red Blood Cells % 0.1 %; Red Blood Cells 3.88 10^6/uL (4.0-5.20); Red Cell Distribution Width 13.7 % (11.8-14.3); White Blood Cell 9.4 10^3/uL (4.4-10.8)
[2021-06-11 17:32] LABS: INR 1.01 (0.9-1.15); Partial Thromboplastin Time 29.6 sec (23.6-33.0)
[2021-06-11] MEDS: HEPARIN DRIP/D5W 100UNITS/ML 250 ML IV SCH (18:46)
[2021-06-11] MEDS ORDERED: amLODIPine BESYLATE 5 MG TAB PO ONE (20:45)
[2021-06-11 21:43] VITALS: BP 174/98
[2021-06-11] MEDS: ATORVASTATIN 20 MG TAB PO SCH (21:58)
[2021-06-11] MEDS: METOPROLOL TARTRATE 25 MG TAB PO SCH (21:59)
[2021-06-11] MEDS: hydrALAZINE HCL 10 MG TAB PO PRN (21:59)
[2021-06-12 01:55] LABS: INR 1.02 (0.9-1.15); Partial Thromboplastin Time 34.5 sec (23.6-33.0)
[2021-06-12 05:00] VITALS: BP 141/79
[2021-06-12] MEDS: FUROSEMIDE 40 MG/4 ML VIAL IV SCH ×2 (05:39→17:45)
[2021-06-12 06:23] LABS: Calcium 8.6 mg/dL (8.5-10.1); Potassium 3.8 mmol/L (3.5-5.1)
[2021-06-12 06:26] LABS: BUN/Creatinine Ratio 22.5
[2021-06-12 06:29] LABS: Basophils # (auto) 0.1 10 ^3/uL (0-0.2); Basophils % (auto) 1.8 % (0.0-2.0); Eosinophils # (auto) 0.2 10 ^3/uL (0-0.8); Eosinophils % (auto) 3.2 % (0.0-7.0); Hematocrit 29.6 % (36.0-46.0); Hemoglobin 10.3 g/dL (12.2-16.2); Lymphocytes # (auto) 1.8 10 ^3/uL (0.4-5.4); Lymphocytes % (auto) 24.4 % (10.0-50.0); Mean Corpuscular Hemoglobin 28.9 pg (28.0-32.0); Mean Corpuscular Hgb Conc. 34.8 g/dL (32.0-36.0); Mean Corpuscular Volume 83.1 fL (80.0-100.0); Monocytes # (auto) 0.7 10 ^3/uL (0-1.3); Monocytes % (auto) 10.1 % (0.0-12.0); Neutrophils # (auto) 4.4 10 ^3/uL (1.6-8.6); Neutrophils % (auto) 60.5 % (37.0-80.0); Red Blood Cells 3.56 10^6/uL (4.0-5.20); Red Cell Distribution Width 13.4 % (11.8-14.3); White Blood Cell 7.3 10^3/uL (4.4-10.8)
[2021-06-12] MEDS: ACETAMINOPHEN 325 MG TAB PO PRN (07:40)
[2021-06-12] MEDS ORDERED: HEPARIN SODIUM (PORCINE) 5000 UNITS/ML 1ML VIAL IV ONE (08:30)
[2021-06-12 08:33] VITALS: BP 176/91
[2021-06-12] MEDS: ASPirin 81 mg TAB PO SCH (09:45)
[2021-06-12] MEDS: METOPROLOL TARTRATE 25 MG TAB PO SCH (09:45)
[2021-06-12] MEDS ORDERED: amLODIPine BESYLATE 5 MG TAB PO SCH (10:00)
[2021-06-12] MEDS ORDERED: DEXTROSE (50%) 50ML SYRG IV PRN (10:30)
[2021-06-12] MEDS: InsuLIN REG 1unit/0.01ml Soln (100units/ml) SC SCH ×3 (11:30→22:08)
[2021-06-12] MEDS: ACCU-CHEK COMFORT CURVE STRIP VI SCH ×3 (11:30→22:07)
[2021-06-12] MEDS ORDERED: METOPROLOL TARTRATE 25 MG TAB PO ONE (11:45)
[2021-06-12] MEDS: levoFLOXacin 500MG 100 ML IV SCH (11:45)
[2021-06-12] MEDS: hydrALAZINE HCL 10 MG TAB PO PRN (12:03)
[2021-06-12] MEDS ORDERED: amLODIPine BESYLATE 5 MG TAB PO ONE (12:45)
[2021-06-12] MEDS ORDERED: CLOPIDOGREL 300 MG TAB PO ONE (12:45)
[2021-06-12 12:56] VITALS: BP 182/89
[2021-06-12] MEDS ORDERED: ACETYLCYSTEINE ORAL for CIN 20%(200MG/ML) 4ML PO SCH (13:15)
[2021-06-12] MEDS: hydrALAZINE HCL 20 MG/ML VL IV PRN (15:20)
[2021-06-12 15:28] LABS: INR 1.07 (0.9-1.15)
[2021-06-12 15:42] LABS: Partial Thromboplastin Time 72.9 sec (23.6-33.0)
[2021-06-12 16:31] VITALS: BP 136/77
[2021-06-12] MEDS: HEPARIN DRIP/D5W 100UNITS/ML 250 ML IV SCH (16:54)
[2021-06-12 22:00] VITALS: BP 134/71
[2021-06-12] MEDS: ACETYLCYSTEINE ORAL for CIN 20%(200MG/ML) 4ML PO SCH (22:07)
[2021-06-12] MEDS: ATORVASTATIN 20 MG TAB PO SCH (22:07)
[2021-06-12] MEDS: METOPROLOL TARTRATE 50 MG TAB PO SCH (22:09)
[2021-06-12 22:48] LABS: INR 1.07 (0.9-1.15); Partial Thromboplastin Time 48.4 sec (23.6-33.0)
[2021-06-13] VITALS (12 sets, daily range): BP systolic 115–178; BP diastolic 66–90
[2021-06-13] MEDS: FUROSEMIDE 40 MG/4 ML VIAL IV SCH ×2 (06:00→17:29)
[2021-06-13] MEDS ORDERED: SODIUM CHLORIDE 0.9% 1,000 ML IV ONE (06:00)
[2021-06-13] MEDS: ACCU-CHEK COMFORT CURVE STRIP VI SCH ×4 (06:20→22:00)
[2021-06-13 06:53] LABS: Basophils # (auto) 0.1 10 ^3/uL (0-0.2); Basophils % (auto) 1.5 % (0.0-2.0); Eosinophils # (auto) 0.2 10 ^3/uL (0-0.8); Eosinophils % (auto) 3.2 % (0.0-7.0); Hematocrit 29.8 % (36.0-46.0); Hemoglobin 9.9 g/dL (12.2-16.2); Lymphocytes % (auto) 28.9 % (10.0-50.0); Mean Corpuscular Hemoglobin 27.6 pg (28.0-32.0); Mean Corpuscular Hgb Conc. 33.4 g/dL (32.0-36.0); Mean Corpuscular Volume 82.8 fL (80.0-100.0); Monocytes % (auto) 14.4 % (0.0-12.0); Neutrophils # (auto) 3.6 10 ^3/uL (1.6-8.6); Nucleated Red Blood Cells % 0.1 %; Red Cell Distribution Width 13.6 % (11.8-14.3); White Blood Cell 6.9 10^3/uL (4.4-10.8)
[2021-06-13] MEDS: InsuLIN REG 1unit/0.01ml Soln (100units/ml) SC SCH ×4 (07:00→23:00)
[2021-06-13 07:04] LABS: INR 1.05 (0.9-1.15); Partial Thromboplastin Time 56.9 sec (23.6-33.0)
[2021-06-13 07:07] LABS: BUN/Creatinine Ratio 21.8; Calcium 8.7 mg/dL (8.5-10.1); Potassium 3.7 mmol/L (3.5-5.1)
[2021-06-13] MEDS ORDERED: LIDOCAINE 2%HCL (LOCAL ANESTH.) INJ 10ml MDV ONE (09:22)
[2021-06-13] MEDS ORDERED: ANGIOMAX 250 MG VIAL IV ONE (09:22)
[2021-06-13] MEDS ORDERED: SODIUM CHL 0.9% 50 ML ONE (09:22)
[2021-06-13] MEDS ORDERED: fentaNYL CITRATE 100 MCG/2 ML VL ONE (09:23)
[2021-06-13] MEDS ORDERED: MIDAZOLAM HCL 2MG/2ML 2ml VIAL (1mg/ml) ONE (09:23)
[2021-06-13] MEDS ORDERED: hydrALAZINE HCL 20 MG/ML VL ONE (09:53)
[2021-06-13] MEDS: levoFLOXacin 500MG 100 ML IV SCH (10:00)
[2021-06-13] MEDS: METOPROLOL TARTRATE 50 MG TAB PO SCH ×2 (10:00→23:00)
[2021-06-13] MEDS: ACETYLCYSTEINE ORAL for CIN 20%(200MG/ML) 4ML PO SCH ×2 (10:00→23:00)
[2021-06-13] MEDS: ASPirin 81 mg TAB PO SCH (10:00)
[2021-06-13] MEDS: amLODIPine BESYLATE 5 MG TAB PO SCH (10:00)
[2021-06-13] MEDS ORDERED: IODIXANOL 320MG/ML 100ML BTL IV ONE ×2 (10:39→11:26)
[2021-06-13] MEDS ORDERED: HYDROmorphone HCL 2 MG/ML VL/or syr ONE (11:34)
[2021-06-13] MEDS ORDERED: ASPirin 81 mg TAB ONE (11:43)
[2021-06-13] MEDS ORDERED: CLOPIDOGREL BISULFATE 75 MG TAB ONE (11:43)
[2021-06-13] MEDS ORDERED: CLOPIDOGREL BISULFATE 75 MG TAB PO ONE (12:00)
[2021-06-13] MEDS ORDERED: ASPirin 81 mg TAB PO ONE (12:00)
[2021-06-13] MEDS: HYDROcodone-ACET 5/325MG TAB PO PRN (17:37)
[2021-06-13] MEDS: levoFLOXacin 250MG 50 ML IV SCH (21:23)
[2021-06-13] MEDS: ATORVASTATIN 20 MG TAB PO SCH (23:00)
[2021-06-14 05:00] VITALS: BP 102/61
[2021-06-14 05:29] LABS: Basophils # (auto) 0 10 ^3/uL (0-0.2); Basophils % (auto) 0.5 % (0.0-2.0); Eosinophils # (auto) 0.1 10 ^3/uL (0-0.8); Eosinophils % (auto) 0.8 % (0.0-7.0); Hematocrit 26.4 % (36.0-46.0); Lymphocytes % (auto) 13.5 % (10.0-50.0); Mean Corpuscular Hemoglobin 28.3 pg (28.0-32.0); Mean Corpuscular Hgb Conc. 34.1 g/dL (32.0-36.0); Mean Corpuscular Volume 82.9 fL (80.0-100.0); Monocytes % (auto) 12.3 % (0.0-12.0); Neutrophils # (auto) 5.7 10 ^3/uL (1.6-8.6); Neutrophils % (auto) 72.9 % (37.0-80.0); Red Blood Cells 3.19 10^6/uL (4.0-5.20); Red Cell Distribution Width 13.5 % (11.8-14.3); White Blood Cell 7.8 10^3/uL (4.4-10.8)
[2021-06-14 05:42] LABS: Albumin 2.5 g/dL (3.4-5.0); BUN/Creatinine Ratio 19.4; Calcium 8.2 mg/dL (8.5-10.1); Potassium 3.9 mmol/L (3.5-5.1)
[2021-06-14 05:45] LABS: Bilirubin, Total 0.5 mg/dL (0.2-1.0); Total Protein 5.8 g/dL (6.4-8.2)
[2021-06-14] MEDS: ACCU-CHEK COMFORT CURVE STRIP VI SCH ×4 (07:18→21:55)
[2021-06-14] MEDS: FUROSEMIDE 40 MG/4 ML VIAL IV SCH ×2 (07:19→17:54)
[2021-06-14] MEDS: InsuLIN REG 1unit/0.01ml Soln (100units/ml) SC SCH ×4 (07:35→21:56)
[2021-06-14 08:52] VITALS: BP 133/75
[2021-06-14] MEDS: METOPROLOL TARTRATE 50 MG TAB PO SCH ×2 (11:00→21:54)
[2021-06-14] MEDS: ASPirin 81 mg TAB PO SCH (11:01)
[2021-06-14] MEDS: CLOPIDOGREL BISULFATE 75 MG TAB PO SCH (11:01)
[2021-06-14] MEDS: amLODIPine BESYLATE 5 MG TAB PO SCH (11:02)
[2021-06-14] MEDS: ACETAMINOPHEN 325 MG TAB PO PRN (11:03)
[2021-06-14] MEDS: ACETYLCYSTEINE ORAL for CIN 20%(200MG/ML) 4ML PO SCH ×2 (12:06→21:53)
[2021-06-14 13:00] VITALS: BP 140/80
[2021-06-14 16:43] VITALS: BP 114/68
[2021-06-14] MEDS: levoFLOXacin 250MG 50 ML IV SCH (17:53)
[2021-06-14 20:00] VITALS: BP 124/76
[2021-06-14 21:12] VITALS: BP 124/76
[2021-06-14] MEDS: ATORVASTATIN 20 MG TAB PO SCH (21:54)
[2021-06-14] MEDS: HYDROcodone-ACET 5/325MG TAB PO PRN (22:12)
[2021-06-15] VITALS (8 sets, daily range): BP systolic 118–135; BP diastolic 61–74
[2021-06-15 06:08] LABS: Albumin 2.6 g/dL (3.4-5.0); Bilirubin, Total 0.6 mg/dL (0.2-1.0); Calcium 8.6 mg/dL (8.5-10.1); Total Protein 6.9 g/dL (6.4-8.2)
[2021-06-15] MEDS: FUROSEMIDE 40 MG/4 ML VIAL IV SCH ×2 (06:28→17:42)
[2021-06-15] MEDS: ACCU-CHEK COMFORT CURVE STRIP VI SCH ×4 (06:28→22:30)
[2021-06-15] MEDS: InsuLIN REG 1unit/0.01ml Soln (100units/ml) SC SCH ×4 (06:28→22:33)
[2021-06-15 08:54] LABS: Creatinine, Urine 88 mg/dL (30.0-125.0); Sodium Urine 16 mmol/L (40-220)
[2021-06-15 08:56] LABS: Protein, Urine 47.3 mg/dL (0.0-11.9)
[2021-06-15] MEDS: ASPirin 81 mg TAB PO SCH (10:32)
[2021-06-15] MEDS: CLOPIDOGREL BISULFATE 75 MG TAB PO SCH (10:33)
[2021-06-15] MEDS: METOPROLOL TARTRATE 50 MG TAB PO SCH ×2 (10:33→22:00)
[2021-06-15] MEDS: ACETYLCYSTEINE ORAL for CIN 20%(200MG/ML) 4ML PO SCH (10:35)
[2021-06-15] MEDS: amLODIPine BESYLATE 5 MG TAB PO SCH (10:35)
[2021-06-15] MEDS: levoFLOXacin 250MG 50 ML IV SCH (17:42)
[2021-06-15] MEDS: ATORVASTATIN 20 MG TAB PO SCH (22:29)
[2021-06-16] VITALS (19 sets, daily range): BP systolic 119–137; BP diastolic 57–79
[2021-06-16 03:53] LABS: Basophils # (auto) 0 10 ^3/uL (0-0.2); Basophils % (auto) 0.5 % (0.0-2.0); Eosinophils # (auto) 0.2 10 ^3/uL (0-0.8); Eosinophils % (auto) 2.1 % (0.0-7.0); Hematocrit 24.8 % (36.0-46.0); Hemoglobin 8.7 g/dL (12.2-16.2); Lymphocytes # (auto) 1.4 10 ^3/uL (0.4-5.4); Lymphocytes % (auto) 16.1 % (10.0-50.0); Mean Corpuscular Hemoglobin 28.5 pg (28.0-32.0); Mean Corpuscular Volume 81.3 fL (80.0-100.0); Monocytes # (auto) 1.3 10 ^3/uL (0-1.3); Neutrophils # (auto) 5.7 10 ^3/uL (1.6-8.6); Neutrophils % (auto) 66.3 % (37.0-80.0); Nucleated Red Blood Cells % 0.1 %; Red Blood Cells 3.05 10^6/uL (4.0-5.20); Red Cell Distribution Width 13.7 % (11.8-14.3); White Blood Cell 8.5 10^3/uL (4.4-10.8)
[2021-06-16 04:13] LABS: Albumin 2.5 g/dL (3.4-5.0); BUN/Creatinine Ratio 17.4; Calcium 7.9 mg/dL (8.5-10.1); Potassium 3.4 mmol/L (3.5-5.1)
[2021-06-16 04:17] LABS: Bilirubin, Total 0.5 mg/dL (0.2-1.0); Total Protein 6.3 g/dL (6.4-8.2)
[2021-06-16] MEDS: InsuLIN REG 1unit/0.01ml Soln (100units/ml) SC SCH ×4 (06:05→22:14)
[2021-06-16] MEDS: FUROSEMIDE 40 MG/4 ML VIAL IV SCH ×2 (06:05→18:01)
[2021-06-16] MEDS: ACCU-CHEK COMFORT CURVE STRIP VI SCH ×4 (06:05→22:14)
[2021-06-16] MEDS ORDERED: POTASSIUM EFFERVESENT TAB 25 MEQ PO ONE (07:30)
[2021-06-16] MEDS ORDERED: IODIXANOL 320MG/ML 100ML BTL IV ONE (08:54)
[2021-06-16] MEDS ORDERED: HEPARIN IN NS 1000Units/500mL 1,500 ML ONE (08:54)
[2021-06-16] MEDS: CLOPIDOGREL BISULFATE 75 MG TAB PO SCH (09:51)
[2021-06-16] MEDS: amLODIPine BESYLATE 5 MG TAB PO SCH (09:51)
[2021-06-16] MEDS: ASPirin 81 mg TAB PO SCH (09:51)
[2021-06-16] MEDS: METOPROLOL TARTRATE 50 MG TAB PO SCH ×2 (09:51→21:25)
[2021-06-16] MEDS: DOPamine 1600MCG/ML D5W 250 ML IV SCH (12:36)
[2021-06-16] MEDS ORDERED: DOBUTamine 1000MCG/ML 250 ML IV SCH (15:30)
[2021-06-16] MEDS: levoFLOXacin 250MG 50 ML IV SCH (18:01)
[2021-06-16] MEDS: ATORVASTATIN 20 MG TAB PO SCH (21:24)
[2021-06-17 05:17] VITALS: BP 126/67
[2021-06-17] MEDS: FUROSEMIDE 40 MG/4 ML VIAL IV SCH ×2 (05:37→18:46)
[2021-06-17] MEDS: ACCU-CHEK COMFORT CURVE STRIP VI SCH ×4 (06:20→23:30)
[2021-06-17] MEDS: InsuLIN REG 1unit/0.01ml Soln (100units/ml) SC SCH ×4 (06:21→23:31)
[2021-06-17 07:28] LABS: Albumin 2.4 g/dL (3.4-5.0); BUN/Creatinine Ratio 18.9; Calcium 8.2 mg/dL (8.5-10.1); Potassium 3.5 mmol/L (3.5-5.1)
[2021-06-17 07:33] LABS: Bilirubin, Total 0.4 mg/dL (0.2-1.0); Total Protein 6.6 g/dL (6.4-8.2)
[2021-06-17 09:00] VITALS: BP 137/83
[2021-06-17] MEDS: ASPirin 81 mg TAB PO SCH (09:47)
[2021-06-17] MEDS: METOPROLOL TARTRATE 50 MG TAB PO SCH ×2 (09:48→21:43)
[2021-06-17] MEDS: amLODIPine BESYLATE 5 MG TAB PO SCH (09:48)
[2021-06-17] MEDS: CLOPIDOGREL BISULFATE 75 MG TAB PO SCH (09:49)
[2021-06-17] MEDS: DOPamine 1600MCG/ML D5W 250 ML IV SCH (11:30)
[2021-06-17] MEDS: POTASSIUM CHL 20MEQ/100ML 100 ML IV SCH ×2 (12:46→14:39)
[2021-06-17 13:00] VITALS: BP 139/77
[2021-06-17] MEDS: DOBUTamine 1000MCG/ML 250 ML IV SCH (15:15)
[2021-06-17 15:34] LABS: INR 1.02 (0.9-1.15); Partial Thromboplastin Time 27.6 sec (23.6-33.0)
[2021-06-17 17:00] VITALS: BP 110/68
[2021-06-17] MEDS: levoFLOXacin 250MG 50 ML IV SCH (18:46)
[2021-06-17] MEDS: ATORVASTATIN 20 MG TAB PO SCH (21:42)
[2021-06-17 21:49] VITALS: BP 131/74
[2021-06-18 04:49] VITALS: BP 104/53
[2021-06-18 05:28] LABS: Basophils # (auto) 0.1 10 ^3/uL (0-0.2); Basophils % (auto) 0.7 % (0.0-2.0); Eosinophils # (auto) 0.2 10 ^3/uL (0-0.8); Eosinophils % (auto) 2.6 % (0.0-7.0); Hematocrit 23.3 % (36.0-46.0); Hemoglobin 8.1 g/dL (12.2-16.2); Lymphocytes # (auto) 1.4 10 ^3/uL (0.4-5.4); Lymphocytes % (auto) 18.9 % (10.0-50.0); Mean Corpuscular Hemoglobin 28.7 pg (28.0-32.0); Mean Corpuscular Hgb Conc. 34.8 g/dL (32.0-36.0); Mean Corpuscular Volume 82.5 fL (80.0-100.0); Monocytes # (auto) 1.2 10 ^3/uL (0-1.3); Monocytes % (auto) 15.8 % (0.0-12.0); Neutrophils # (auto) 4.6 10 ^3/uL (1.6-8.6); Red Blood Cells 2.83 10^6/uL (4.0-5.20); Red Cell Distribution Width 13.8 % (11.8-14.3); White Blood Cell 7.4 10^3/uL (4.4-10.8)
[2021-06-18 05:42] LABS: Potassium 3.8 mmol/L (3.5-5.1)
[2021-06-18 05:50] LABS: Albumin 2.4 g/dL (3.4-5.0); BUN/Creatinine Ratio 21.4; Bilirubin, Total 0.5 mg/dL (0.2-1.0); Calcium 8.1 mg/dL (8.5-10.1); Total Protein 6.3 g/dL (6.4-8.2)
[2021-06-18] MEDS: ACCU-CHEK COMFORT CURVE STRIP VI SCH ×4 (06:04→22:17)
[2021-06-18] MEDS: FUROSEMIDE 40 MG/4 ML VIAL IV SCH ×2 (06:04→17:46)
[2021-06-18] MEDS: InsuLIN REG 1unit/0.01ml Soln (100units/ml) SC SCH ×4 (06:09→22:20)
[2021-06-18 09:00] VITALS: BP 128/66
[2021-06-18] MEDS: ASPirin 81 mg TAB PO SCH (11:50)
[2021-06-18] MEDS: METOPROLOL TARTRATE 50 MG TAB PO SCH ×2 (11:52→22:13)
[2021-06-18] MEDS: amLODIPine BESYLATE 5 MG TAB PO SCH (11:53)
[2021-06-18] MEDS: CLOPIDOGREL BISULFATE 75 MG TAB PO SCH (11:53)
[2021-06-18 13:00] VITALS: BP 145/80
[2021-06-18] MEDS: DOBUTamine 1000MCG/ML 250 ML IV SCH (13:00)
[2021-06-18 17:00] VITALS: BP 106/67
[2021-06-18] MEDS: levoFLOXacin 250MG 50 ML IV SCH (17:46)
[2021-06-18 21:54] VITALS: BP_SYST 106; BP_SYST 115; BP_DIAS 63; BP_DIAS 67
[2021-06-18] MEDS: ATORVASTATIN 20 MG TAB PO SCH (22:12)
[2021-06-19 05:00] VITALS: BP 110/64
[2021-06-19] MEDS: FUROSEMIDE 40 MG/4 ML VIAL IV SCH (06:16)
[2021-06-19] MEDS: ACCU-CHEK COMFORT CURVE STRIP VI SCH ×4 (06:23→22:05)
[2021-06-19] MEDS: InsuLIN REG 1unit/0.01ml Soln (100units/ml) SC SCH ×4 (06:28→22:04)
[2021-06-19] MEDS: ASPirin 81 mg TAB PO SCH (10:14)
[2021-06-19] MEDS: CLOPIDOGREL BISULFATE 75 MG TAB PO SCH (10:14)
[2021-06-19] MEDS: amLODIPine BESYLATE 5 MG TAB PO SCH (10:15)
[2021-06-19] MEDS: METOPROLOL TARTRATE 50 MG TAB PO SCH ×2 (10:16→21:59)
[2021-06-19 10:22] VITALS: BP 111/58
[2021-06-19 13:47] LABS: BUN/Creatinine Ratio 18.1; Calcium 8.2 mg/dL (8.5-10.1); Potassium 3.2 mmol/L (3.5-5.1)
[2021-06-19] MEDS ORDERED: POTASSIUM CHL 20 Meq TABLET PO ONE (14:45)
[2021-06-19 15:12] VITALS: BP 104/55
[2021-06-19] MEDS: DOBUTamine 1000MCG/ML 250 ML IV SCH (16:57)
[2021-06-19 17:00] VITALS: BP 123/70
[2021-06-19] MEDS: SODIUM CHLORIDE 0.9% 1,000 ML IV SCH (17:00)
[2021-06-19] MEDS: levoFLOXacin 250MG 50 ML IV SCH (17:52)
[2021-06-19 21:57] VITALS: BP 122/70
[2021-06-19] MEDS: ATORVASTATIN 20 MG TAB PO SCH (21:57)
[2021-06-20 05:20] VITALS: BP 124/69
[2021-06-20 05:30] LABS: Basophils # (auto) 0.1 10 ^3/uL (0-0.2); Basophils % (auto) 1.2 % (0.0-2.0); Eosinophils # (auto) 0.2 10 ^3/uL (0-0.8); Eosinophils % (auto) 3.1 % (0.0-7.0); Hematocrit 24.5 % (36.0-46.0); Hemoglobin 8.7 g/dL (12.2-16.2); Lymphocytes # (auto) 1.1 10 ^3/uL (0.4-5.4); Lymphocytes % (auto) 16.9 % (10.0-50.0); Mean Corpuscular Hemoglobin 29.1 pg (28.0-32.0); Mean Corpuscular Hgb Conc. 35.6 g/dL (32.0-36.0); Mean Corpuscular Volume 81.7 fL (80.0-100.0); Monocytes # (auto) 0.9 10 ^3/uL (0-1.3); Monocytes % (auto) 13.5 % (0.0-12.0); Neutrophils # (auto) 4.3 10 ^3/uL (1.6-8.6); Neutrophils % (auto) 65.3 % (37.0-80.0); Red Cell Distribution Width 13.7 % (11.8-14.3); White Blood Cell 6.5 10^3/uL (4.4-10.8)
[2021-06-20 05:45] LABS: INR 1.05 (0.9-1.15); Partial Thromboplastin Time 27.5 sec (23.6-33.0)
[2021-06-20 05:46] LABS: Calcium 8.4 mg/dL (8.5-10.1); Potassium 4.3 mmol/L (3.5-5.1)
[2021-06-20 05:47] LABS: BUN/Creatinine Ratio 18.1
[2021-06-20] MEDS: InsuLIN REG 1unit/0.01ml Soln (100units/ml) SC SCH ×4 (06:43→22:36)
[2021-06-20] MEDS: ACCU-CHEK COMFORT CURVE STRIP VI SCH ×4 (06:44→22:28)
[2021-06-20 09:30] VITALS: BP 118/67
[2021-06-20] MEDS: ASPirin 81 mg TAB PO SCH (10:19)
[2021-06-20] MEDS: METOPROLOL TARTRATE 50 MG TAB PO SCH ×2 (10:20→22:16)
[2021-06-20] MEDS: amLODIPine BESYLATE 5 MG TAB PO SCH (10:21)
[2021-06-20] MEDS: CLOPIDOGREL BISULFATE 75 MG TAB PO SCH (10:23)
[2021-06-20] MEDS: SODIUM CHLORIDE 0.9% 1,000 ML IV SCH (10:29)
[2021-06-20 13:24] VITALS: BP 132/57
[2021-06-20] MEDS: DOBUTamine 1000MCG/ML 250 ML IV SCH (17:14)
[2021-06-20] MEDS: levoFLOXacin 250MG 50 ML IV SCH (17:34)
[2021-06-20 17:40] VITALS: BP 108/60
[2021-06-20 21:55] VITALS: BP 127/70
[2021-06-20] MEDS: ATORVASTATIN 20 MG TAB PO SCH (22:17)
[2021-06-21] MEDS: HYDROcodone-ACET 5/325MG TAB PO PRN (03:54)
[2021-06-21 04:49] VITALS: BP 108/66
[2021-06-21] MEDS: ACCU-CHEK COMFORT CURVE STRIP VI SCH ×4 (06:45→22:35)
[2021-06-21] MEDS: InsuLIN REG 1unit/0.01ml Soln (100units/ml) SC SCH ×4 (06:46→22:30)
[2021-06-21 09:00] VITALS: BP 125/69
[2021-06-21] MEDS: ASPirin 81 mg TAB PO SCH (09:31)
[2021-06-21] MEDS: METOPROLOL TARTRATE 50 MG TAB PO SCH ×2 (09:31→22:00)
[2021-06-21] MEDS: amLODIPine BESYLATE 5 MG TAB PO SCH (09:32)
[2021-06-21] MEDS: CLOPIDOGREL BISULFATE 75 MG TAB PO SCH (09:32)
[2021-06-21] MEDS: SODIUM CHLORIDE 0.9% 1,000 ML IV SCH (10:09)
[2021-06-21 10:20] LABS: Basophils # (auto) 0.1 10 ^3/uL (0-0.2); Eosinophils # (auto) 0.2 10 ^3/uL (0-0.8); Hematocrit 25.7 % (36.0-46.0); Hemoglobin 8.7 g/dL (12.2-16.2); Lymphocytes # (auto) 1.7 10 ^3/uL (0.4-5.4); Lymphocytes % (auto) 24.3 % (10.0-50.0); Mean Corpuscular Hgb Conc. 33.8 g/dL (32.0-36.0); Mean Corpuscular Volume 83.1 fL (80.0-100.0); Monocytes # (auto) 0.8 10 ^3/uL (0-1.3); Neutrophils # (auto) 4.2 10 ^3/uL (1.6-8.6); Neutrophils % (auto) 59.7 % (37.0-80.0); Nucleated Red Blood Cells % 0.2 %; Red Blood Cells 3.09 10^6/uL (4.0-5.20); Red Cell Distribution Width 13.6 % (11.8-14.3)
[2021-06-21 10:45] LABS: BUN/Creatinine Ratio 16.7; Calcium 8.3 mg/dL (8.5-10.1); Potassium 3.9 mmol/L (3.5-5.1)
[2021-06-21 13:00] VITALS: BP 121/72
[2021-06-21] MEDS: DOBUTamine 1000MCG/ML 250 ML IV SCH (15:56)
[2021-06-21 17:00] VITALS: BP 97/49
[2021-06-21] MEDS: levoFLOXacin 250MG 50 ML IV SCH (17:50)
[2021-06-21 21:33] VITALS: BP 106/67
[2021-06-21] MEDS: ATORVASTATIN 20 MG TAB PO SCH (22:27)
[2021-06-22 04:27] VITALS: BP 127/70
[2021-06-22] MEDS: SODIUM CHLORIDE 0.9% 1,000 ML IV SCH (04:30)
[2021-06-22] MEDS: InsuLIN REG 1unit/0.01ml Soln (100units/ml) SC SCH ×4 (06:44→22:16)
[2021-06-22] MEDS: ACCU-CHEK COMFORT CURVE STRIP VI SCH ×4 (06:45→21:42)
[2021-06-22 07:02] LABS: Basophils # (auto) 0.1 10 ^3/uL (0-0.2); Basophils % (auto) 1.9 % (0.0-2.0); Eosinophils # (auto) 0.2 10 ^3/uL (0-0.8); Eosinophils % (auto) 3.5 % (0.0-7.0); Hemoglobin 9.1 g/dL (12.2-16.2); Lymphocytes # (auto) 1.5 10 ^3/uL (0.4-5.4); Lymphocytes % (auto) 22.8 % (10.0-50.0); Mean Corpuscular Hemoglobin 28.8 pg (28.0-32.0); Mean Corpuscular Volume 82.2 fL (80.0-100.0); Monocytes # (auto) 0.7 10 ^3/uL (0-1.3); Monocytes % (auto) 11.6 % (0.0-12.0); Neutrophils # (auto) 3.9 10 ^3/uL (1.6-8.6); Neutrophils % (auto) 60.2 % (37.0-80.0); Red Blood Cells 3.16 10^6/uL (4.0-5.20); Red Cell Distribution Width 13.6 % (11.8-14.3); White Blood Cell 6.5 10^3/uL (4.4-10.8)
[2021-06-22 07:23] LABS: Potassium 3.9 mmol/L (3.5-5.1)
[2021-06-22 07:27] LABS: BUN/Creatinine Ratio 18.6
[2021-06-22 09:00] VITALS: BP_SYST 121; BP_SYST 127; BP_DIAS 63; BP_DIAS 70
[2021-06-22] MEDS: ASPirin 81 mg TAB PO SCH (10:01)
[2021-06-22] MEDS: METOPROLOL TARTRATE 50 MG TAB PO SCH ×2 (10:01→21:42)
[2021-06-22] MEDS: amLODIPine BESYLATE 5 MG TAB PO SCH (10:02)
[2021-06-22] MEDS: CLOPIDOGREL BISULFATE 75 MG TAB PO SCH (10:02)
[2021-06-22] MEDS: DOBUTamine 1000MCG/ML 250 ML IV SCH ×2 (12:31→22:17)
[2021-06-22 13:00] VITALS: BP 107/68
[2021-06-22] MEDS ORDERED: ACETAMINOPHEN 325 MG TAB PO ONE (14:00)
[2021-06-22] MEDS: ACETAMINOPHEN 325 MG TAB PO PRN (14:17)
[2021-06-22 17:22] VITALS: BP 110/69
[2021-06-22] MEDS: levoFLOXacin 250MG 50 ML IV SCH (17:48)
[2021-06-22] MEDS: ATORVASTATIN 20 MG TAB PO SCH (21:42)
[2021-06-22] MEDS: MORPHINE SULFATE INJ 2 MG/ml SYRG IV PRN (21:43)
[2021-06-22 22:00] VITALS: BP 101/56
[2021-06-23] VITALS (11 sets, daily range): BP systolic 110–127; BP diastolic 65–75
[2021-06-23] MEDS: SODIUM CHLORIDE 0.9% 1,000 ML IV SCH ×2 (00:30→17:30)
[2021-06-23] MEDS: ACCU-CHEK COMFORT CURVE STRIP VI SCH ×4 (05:17→22:35)
[2021-06-23] MEDS: InsuLIN REG 1unit/0.01ml Soln (100units/ml) SC SCH ×4 (05:47→22:35)
[2021-06-23 06:08] LABS: Basophils # (auto) 0.1 10 ^3/uL (0-0.2); Eosinophils # (auto) 0.1 10 ^3/uL (0-0.8); Eosinophils % (auto) 1.2 % (0.0-7.0); Hematocrit 25.4 % (36.0-46.0); Hemoglobin 8.8 g/dL (12.2-16.2); Lymphocytes # (auto) 1.1 10 ^3/uL (0.4-5.4); Lymphocytes % (auto) 14.5 % (10.0-50.0); Mean Corpuscular Hemoglobin 28.3 pg (28.0-32.0); Mean Corpuscular Hgb Conc. 34.5 g/dL (32.0-36.0); Mean Corpuscular Volume 82.1 fL (80.0-100.0); Monocytes # (auto) 0.6 10 ^3/uL (0-1.3); Monocytes % (auto) 8.4 % (0.0-12.0); Neutrophils # (auto) 5.8 10 ^3/uL (1.6-8.6); Neutrophils % (auto) 74.9 % (37.0-80.0); Nucleated Red Blood Cells % 0.1 %; Red Blood Cells 3.09 10^6/uL (4.0-5.20); Red Cell Distribution Width 13.9 % (11.8-14.3); White Blood Cell 7.7 10^3/uL (4.4-10.8)
[2021-06-23 06:09] LABS: Calcium 8.2 mg/dL (8.5-10.1); Potassium 5.1 mmol/L (3.5-5.1)
[2021-06-23 06:21] LABS: INR 1.09 (0.9-1.15); Partial Thromboplastin Time 26.5 sec (23.6-33.0)
[2021-06-23] MEDS: CLOPIDOGREL BISULFATE 75 MG TAB PO SCH (10:00)
[2021-06-23] MEDS ORDERED: SODIUM CHLORIDE 0.9% 1,000 ML IV SCH ×2 (10:15→16:00)
[2021-06-23] MEDS: ASPirin 81 mg TAB PO SCH (10:42)
[2021-06-23] MEDS: METOPROLOL TARTRATE 50 MG TAB PO SCH ×2 (10:42→22:22)
[2021-06-23] MEDS: amLODIPine BESYLATE 5 MG TAB PO SCH (10:43)
[2021-06-23] MEDS ORDERED: FUROSEMIDE 20 MG/2 ML VIAL IV ONE (13:15)
[2021-06-23] MEDS ORDERED: MIDAZOLAM HCL 2MG/2ML 2ml VIAL (1mg/ml) ONE (13:54)
[2021-06-23] MEDS ORDERED: SODIUM CHL 0.9% 50 ML ONE (13:54)
[2021-06-23] MEDS ORDERED: fentaNYL CITRATE 100 MCG/2 ML VL ONE (13:54)
[2021-06-23] MEDS ORDERED: ANGIOMAX 250 MG VIAL IV ONE (13:54)
[2021-06-23] MEDS ORDERED: LIDOCAINE 2%HCL (LOCAL ANESTH.) INJ 10ml MDV ONE (13:55)
[2021-06-23] MEDS ORDERED: IODIXANOL 320MG/ML 100ML BTL IV ONE (13:56)
[2021-06-23] MEDS ORDERED: IOHEXOL 350 MG/ML 100ML IJ ONE (13:59)
[2021-06-23] MEDS: levoFLOXacin 250MG 50 ML IV SCH (18:07)
[2021-06-23] MEDS: ATORVASTATIN 20 MG TAB PO SCH (22:22)
[2021-06-24 05:00] VITALS: BP 122/73
[2021-06-24] MEDS: ACCU-CHEK COMFORT CURVE STRIP VI SCH ×4 (06:54→22:09)
[2021-06-24] MEDS: SODIUM CHLORIDE 0.9% 1,000 ML IV SCH (06:54)
[2021-06-24] MEDS: InsuLIN REG 1unit/0.01ml Soln (100units/ml) SC SCH ×4 (06:55→22:30)
[2021-06-24 07:10] LABS: Calcium 8.1 mg/dL (8.5-10.1); Potassium 4.3 mmol/L (3.5-5.1)
[2021-06-24 07:12] LABS: BUN/Creatinine Ratio 17.9
[2021-06-24 08:00] VITALS: BP 129/66
[2021-06-24] MEDS: ASPirin 81 mg TAB PO SCH (10:15)
[2021-06-24] MEDS: METOPROLOL TARTRATE 50 MG TAB PO SCH ×2 (10:15→22:09)
[2021-06-24] MEDS: amLODIPine BESYLATE 5 MG TAB PO SCH (10:16)
[2021-06-24] MEDS: CLOPIDOGREL BISULFATE 75 MG TAB PO SCH (10:16)
[2021-06-24] MEDS ORDERED: FUROSEMIDE 20 MG/2 ML VIAL IV ONE (10:30)
[2021-06-24 12:00] VITALS: BP 129/75
[2021-06-24] MEDS: DOBUTamine 1000MCG/ML 250 ML IV SCH (13:30)
[2021-06-24 16:00] VITALS: BP 127/89
[2021-06-24] MEDS: levoFLOXacin 250MG 50 ML IV SCH (18:57)
[2021-06-24 21:54] VITALS: BP 116/62
[2021-06-24] MEDS: ATORVASTATIN 20 MG TAB PO SCH (22:08)
[2021-06-25] VITALS (37 sets, daily range): BP systolic 93–152; BP diastolic 52–87
[2021-06-25] MEDS: ACCU-CHEK COMFORT CURVE STRIP VI SCH ×4 (07:25→20:50)
[2021-06-25] MEDS: InsuLIN REG 1unit/0.01ml Soln (100units/ml) SC SCH ×4 (07:50→21:00)
[2021-06-25 08:44] LABS: Basophils # (auto) 0.1 10 ^3/uL (0-0.2); Eosinophils # (auto) 0.2 10 ^3/uL (0-0.8); Eosinophils % (auto) 2.8 % (0.0-7.0); Hematocrit 27.1 % (36.0-46.0); Lymphocytes # (auto) 1.6 10 ^3/uL (0.4-5.4); Lymphocytes % (auto) 22.5 % (10.0-50.0); Mean Corpuscular Hemoglobin 28.3 pg (28.0-32.0); Mean Corpuscular Hgb Conc. 34.2 g/dL (32.0-36.0); Mean Corpuscular Volume 82.7 fL (80.0-100.0); Monocytes # (auto) 0.8 10 ^3/uL (0-1.3); Monocytes % (auto) 10.8 % (0.0-12.0); Neutrophils # (auto) 4.5 10 ^3/uL (1.6-8.6); Neutrophils % (auto) 62.9 % (37.0-80.0); Nucleated Red Blood Cells % 0.1 %; Red Blood Cells 3.27 10^6/uL (4.0-5.20); White Blood Cell 7.1 10^3/uL (4.4-10.8)
[2021-06-25 08:49] LABS: Hemoglobin 9.2 g/dL (12.2-16.2)
[2021-06-25 08:56] LABS: BUN/Creatinine Ratio 17.9; Calcium 8.4 mg/dL (8.5-10.1); Magnesium 2.6 mg/dL (1.6-2.6)
[2021-06-25] MEDS: CLOPIDOGREL BISULFATE 75 MG TAB PO SCH (09:23)
[2021-06-25] MEDS: ASPirin 81 mg TAB PO SCH (09:24)
[2021-06-25] MEDS: METOPROLOL TARTRATE 50 MG TAB PO SCH ×2 (09:25→20:46)
[2021-06-25] MEDS: amLODIPine BESYLATE 5 MG TAB PO SCH (09:26)
[2021-06-25] MEDS: DAPAGLIFLOZIN 5 MG TAB PO SCH (09:27)
[2021-06-25] MEDS ORDERED: FUROSEMIDE 20 MG/2 ML VIAL IV SCH (10:00)
[2021-06-25] MEDS ORDERED: FUROSEMIDE 100 MG/10ML VIAL IV ONE (12:30)
[2021-06-25] MEDS ORDERED: ALBUTEROL SULF 2.5 MG/0.5ML(0.5%) NEB SOLN NEB PRN (12:30)
[2021-06-25] MEDS: hydrALAZINE HCL 20 MG/ML VL IV PRN (12:30)
[2021-06-25] MEDS: DOBUTamine 1000MCG/ML 250 ML IV SCH (13:00)
[2021-06-25] MEDS: MORPHINE SULFATE INJ 2 MG/ml SYRG IV PRN (13:54)
[2021-06-25] MEDS: FUROSEMIDE 20 MG/2 ML VIAL IV SCH (17:07)
[2021-06-25] MEDS: levoFLOXacin 250MG 50 ML IV SCH (17:47)
[2021-06-25] MEDS: hydrALAZINE HCL 10 MG TAB PO SCH (17:47)
[2021-06-25] MEDS: ACETAMINOPHEN 325 MG TAB PO PRN (20:46)
[2021-06-25] MEDS: ATORVASTATIN 20 MG TAB PO SCH (20:50)
[2021-06-26] VITALS (69 sets, daily range): BP systolic 98–150; BP diastolic 46–84
[2021-06-26] MEDS: DOBUTamine 1000MCG/ML 250 ML IV SCH (02:54)
[2021-06-26] MEDS: ACCU-CHEK COMFORT CURVE STRIP VI SCH ×4 (04:37→21:52)
[2021-06-26] MEDS: InsuLIN REG 1unit/0.01ml Soln (100units/ml) SC SCH ×4 (04:55→21:52)
[2021-06-26] MEDS: hydrALAZINE HCL 10 MG TAB PO SCH ×2 (05:05)
[2021-06-26 05:46] LABS: Potassium 3.3 mmol/L (3.5-5.1)
[2021-06-26 05:49] LABS: BUN/Creatinine Ratio 15.9
[2021-06-26] MEDS ORDERED: NITROGLYCERIN 2% OINT 1GM PKG TD ONE (07:00)
[2021-06-26] MEDS ORDERED: POTASSIUM EFFERVESENT TAB 25 MEQ PO ONE (07:30)
[2021-06-26] MEDS: DAPAGLIFLOZIN 5 MG TAB PO SCH (10:00)
[2021-06-26] MEDS: FUROSEMIDE 20 MG/2 ML VIAL IV SCH ×2 (10:00→21:35)
[2021-06-26] MEDS: amLODIPine BESYLATE 5 MG TAB PO SCH (10:00)
[2021-06-26] MEDS: ASPirin 81 mg TAB PO SCH (10:00)
[2021-06-26] MEDS: CLOPIDOGREL BISULFATE 75 MG TAB PO SCH (10:00)
[2021-06-26] MEDS ORDERED: ENALAPRIL MALEATE 10 MG TAB PO SCH (10:15)
[2021-06-26] MEDS: NITROGLYCERIN 0.2MG/HR TOPICAL PATCH TD SCH (11:28)
[2021-06-26] MEDS: METOPROLOL TARTRATE 50 MG TAB PO SCH ×2 (11:28→22:02)
[2021-06-26] MEDS: ACETAMINOPHEN 325 MG TAB PO PRN (14:59)
[2021-06-26] MEDS: levoFLOXacin 250MG 50 ML IV SCH (19:59)
[2021-06-26] MEDS: SACUBITRIL-VALSARTAN 24mg/26mg TAB PO SCH (21:35)
[2021-06-26] MEDS: ATORVASTATIN 20 MG TAB PO SCH (21:36)
[2021-06-27] VITALS (27 sets, daily range): BP systolic 112–170; BP diastolic 39–82
[2021-06-27] MEDS: DOBUTamine 1000MCG/ML 250 ML IV SCH (05:20)
[2021-06-27 05:28] LABS: BUN/Creatinine Ratio 14.9; Calcium 8.1 mg/dL (8.5-10.1); Potassium 3.4 mmol/L (3.5-5.1)
[2021-06-27] MEDS: ACCU-CHEK COMFORT CURVE STRIP VI SCH ×4 (06:42→21:49)
[2021-06-27] MEDS: InsuLIN REG 1unit/0.01ml Soln (100units/ml) SC SCH ×4 (06:42→21:49)
[2021-06-27] MEDS ORDERED: POTASSIUM CHL 20 Meq TABLET PO ONE (08:45)
[2021-06-27] MEDS: NITROGLYCERIN 0.2MG/HR TOPICAL PATCH TD SCH (10:17)
[2021-06-27] MEDS: CLOPIDOGREL BISULFATE 75 MG TAB PO SCH (10:18)
[2021-06-27] MEDS: METOPROLOL TARTRATE 50 MG TAB PO SCH ×2 (10:18→20:49)
[2021-06-27] MEDS: ASPirin 81 mg TAB PO SCH (10:18)
[2021-06-27] MEDS: SACUBITRIL-VALSARTAN 24mg/26mg TAB PO SCH ×2 (10:18→20:49)
[2021-06-27] MEDS: FUROSEMIDE 20 MG/2 ML VIAL IV SCH ×2 (10:18→20:48)
[2021-06-27] MEDS: amLODIPine BESYLATE 5 MG TAB PO SCH (10:19)
[2021-06-27] MEDS: DAPAGLIFLOZIN 5 MG TAB PO SCH (10:19)
[2021-06-27] MEDS: levoFLOXacin 250MG 50 ML IV SCH (18:28)
[2021-06-27] MEDS: ATORVASTATIN 20 MG TAB PO SCH (20:49)
[2021-06-28 05:00] VITALS: BP 120/67
[2021-06-28 06:11] LABS: BUN/Creatinine Ratio 14.8; Calcium 8.1 mg/dL (8.5-10.1); Potassium 3.7 mmol/L (3.5-5.1)
[2021-06-28] MEDS: ACCU-CHEK COMFORT CURVE STRIP VI SCH ×2 (06:18→12:12)
[2021-06-28] MEDS: InsuLIN REG 1unit/0.01ml Soln (100units/ml) SC SCH ×2 (06:23→12:12)
[2021-06-28 08:00] VITALS: BP 100/50
[2021-06-28] MEDS: FUROSEMIDE 20 MG/2 ML VIAL IV SCH (09:17)
[2021-06-28] MEDS: SACUBITRIL-VALSARTAN 24mg/26mg TAB PO SCH (09:18)
[2021-06-28] MEDS: ASPirin 81 mg TAB PO SCH (09:18)
[2021-06-28] MEDS: CLOPIDOGREL BISULFATE 75 MG TAB PO SCH (09:19)
[2021-06-28] MEDS: amLODIPine BESYLATE 5 MG TAB PO SCH (09:19)
[2021-06-28] MEDS: NITROGLYCERIN 0.2MG/HR TOPICAL PATCH TD SCH (09:20)
[2021-06-28] MEDS: METOPROLOL TARTRATE 50 MG TAB PO SCH (09:30)
[2021-06-28] MEDS: DAPAGLIFLOZIN 5 MG TAB PO SCH (09:31)
[2021-06-28] MEDS ORDERED: CLOP75TA70 PO (11:31)
[2021-06-28] MEDS ORDERED: ASPI1CHW15 PO (11:31)
[2021-06-28] MEDS ORDERED: SACU1TAB PO (11:31)
[2021-06-28] MEDS ORDERED: FURO1TAB31 PO (11:31)
[2021-06-28] MEDS ORDERED: MET50T PO (11:31)
[2021-06-28] MEDS ORDERED: AML5T PO (11:31)
[2021-06-28] MEDS ORDERED: ATOR20TA50 PO (11:31)
[2021-06-28 12:00] VITALS: BP 118/53
[2021-06-28 13:25] VITALS: BP 114/63
[2021-07-06] MEDS ORDERED: DAPA1TAB4 PO (04:30)
== END 2021-06-28 16:10 | disposition home or self-care (01) | DRG 174 ==
LOC: EDBD 06:48 → ER 06:48 → EDUNIT# 11:51 → TELE 11:51 → TELE-EAST 17:51 → ICU WEST 06-15 17:23 → TELE-CENTR 06-16 17:54 → DOU IN ICU 06-25 10:48 → TELE-CENTR 06-27 22:50
PROVIDERS: ADMIT Internal Medicine; ATTEND Internal Medicine
PROC: 027035Z Dilation of Coronary Artery, One Artery with Two Drug-eluting Intraluminal Devices, Percutaneous Approach (ICD-10-PCS; principal; 2021-06-13)
PROC: 4A023N7 Measurement of Cardiac Sampling and Pressure, Left Heart, Percutaneous Approach (ICD-10-PCS; 2021-06-13)
PROC: B211YZZ Fluoroscopy of Multiple Coronary Arteries using Other Contrast (ICD-10-PCS; 2021-06-13)
PROC: B215YZZ Fluoroscopy of Left Heart using Other Contrast (ICD-10-PCS; 2021-06-13)
PROC: 4A033BC Measurement of Arterial Pressure, Coronary, Percutaneous Approach (ICD-10-PCS; 2021-06-13)
PROC: B213YZZ Fluoroscopy of Multiple Coronary Artery Bypass Grafts using Other Contrast (ICD-10-PCS; 2021-06-13)
PROC: B218YZZ Fluoroscopy of Left Internal Mammary Bypass Graft using Other Contrast (ICD-10-PCS; 2021-06-13)
PROC: 02C03ZZ Extirpation of Matter from Coronary Artery, One Artery, Percutaneous Approach (ICD-10-PCS; 2021-06-13)
PROC: B240ZZ3 Ultrasonography of Single Coronary Artery, Intravascular (ICD-10-PCS; 2021-06-13)
PROC: 027034Z Dilation of Coronary Artery, One Artery with Drug-eluting Intraluminal Device, Percutaneous Approach (ICD-10-PCS; 2021-06-23)
PROC: 02C03ZZ Extirpation of Matter from Coronary Artery, One Artery, Percutaneous Approach (ICD-10-PCS; 2021-06-23)
PROC: B211YZZ Fluoroscopy of Multiple Coronary Arteries using Other Contrast (ICD-10-PCS; 2021-06-23)
PROC: B213YZZ Fluoroscopy of Multiple Coronary Artery Bypass Grafts using Other Contrast (ICD-10-PCS; 2021-06-23)
PROC: B240ZZ3 Ultrasonography of Single Coronary Artery, Intravascular (ICD-10-PCS; 2021-06-23)
PROC: 0W993ZZ Drainage of Right Pleural Cavity, Percutaneous Approach (ICD-10-PCS; 2021-06-25)
PROC: 0W9B3ZZ Drainage of Left Pleural Cavity, Percutaneous Approach (ICD-10-PCS; 2021-06-26)
PROC: 05HB33Z Insertion of Infusion Device into Right Basilic Vein, Percutaneous Approach (ICD-10-PCS; 2021-06-26)
PROC: B54MZZA Ultrasonography of Right Upper Extremity Veins, Guidance (ICD-10-PCS; 2021-06-26)
DX: I21.4 Non-ST elevation (NSTEMI) myocardial infarction (principal); J96.01 Acute respiratory failure with hypoxia; N17.0 Acute kidney failure with tubular necrosis; I50.23 Acute on chronic systolic (congestive) heart failure; I42.9 Cardiomyopathy, unspecified; J18.9 Pneumonia, unspecified organism; D63.1 Anemia in chronic kidney disease; I13.0 Hypertensive heart and chronic kidney disease with heart failure and stage 1 through stage 4 chronic kidney disease, or unspecified chronic kidney disease; E11.22 Type 2 diabetes mellitus with diabetic chronic kidney disease; E78.5 Hyperlipidemia, unspecified; I25.10 Atherosclerotic heart disease of native coronary artery without angina pectoris; N18.30 Chronic kidney disease, stage 3 unspecified; T50.8X5A Adverse effect of diagnostic agents, initial encounter; N14.1 Nephropathy induced by other drugs, medicaments and biological substances; Z20.822 Contact with and (suspected) exposure to COVID-19; J98.11 Atelectasis; E11.65 Type 2 diabetes mellitus with hyperglycemia; E87.6 Hypokalemia; Y92.89 Other specified places as the place of occurrence of the external cause; Z82.49 Family history of ischemic heart disease and other diseases of the circulatory system; Z83.3 Family history of diabetes mellitus; Z79.4 Long term (current) use of insulin; Z79.899 Other long term (current) drug therapy
CPT/HCPCS: 36415; 36600; 71045; 76604; 76775; 76942; 78582; 80048; 80053; 81001; 82306; 82570; 82805; 82962; 83735; 83880; 83970; 83986; 84100; 84156; 84300; 84443; 84484; 84702; 85025; 85379; 85610; 85730; 86850; 86900; 86901; 87040; 87081; 87205; 89051; 92933; 92934; 92978; 93005; 93306; 93455; 93571; 93970; 96361; 96365; 96372; 96375; 99152; 99153; C1874; C1884; G0378; J0696; J1815; J1956; J2001; J2250; J2405; J3480; Q9967

== ENCOUNTER 2023-03-15 10:49 | Inpatient (IN) | payer MEDICAID ==
[~2023-03-15] VITALS: Ht 162.6 cm; Wt 84.0 kg
[~2023-03-15 10:49] MED LIST changes: -AMLO-489 PO; +ASPI-736 PO; +CAR3125T PO; +CLOP75TA70 PO; +DAPA1TAB4 PO; +DOXY-448 PO; +FURO1TAB31 PO; -GABA300C10 PO; -INSU1INJ19 SC; -METF-370 PO; -METO25TA5 PO; +SACU1TAB PO; +SITA50TA PO
[2023-03-15 11:49] LABS: Basophils # (auto) 0.1 10 ^3/uL (0-0.2); Basophils % (auto) 1.2 % (0.0-2.0); Eosinophils # (auto) 0.2 10 ^3/uL (0-0.8); Eosinophils % (auto) 2.5 % (0.0-7.0); Hematocrit 35.1 % (36.0-46.0); Hemoglobin 11.5 g/dL (12.2-16.2); Lymphocytes # (auto) 0.9 10 ^3/uL (0.4-5.4); Lymphocytes % (auto) 10.2 % (10.0-50.0); Mean Corpuscular Hemoglobin 27.5 pg (28.0-32.0); Mean Corpuscular Hgb Conc. 32.8 g/dL (32.0-36.0); Mean Corpuscular Volume 83.6 fL (80.0-100.0); Monocytes # (auto) 0.6 10 ^3/uL (0-1.3); Monocytes % (auto) 6.4 % (0.0-12.0); Neutrophils # (auto) 7.3 10 ^3/uL (1.6-8.6); Neutrophils % (auto) 79.7 % (37.0-80.0); Red Cell Distribution Width 14.3 % (11.8-14.3); White Blood Cell 9.1 10^3/uL (4.4-10.8)
[2023-03-15 12:01] LABS: Chloride 105 mmol/L (98-107); Potassium 4.4 mmol/L (3.5-5.1); Sodium 136 mmol/L (136-145)
[2023-03-15 12:02] LABS: Anion Gap 6 (5-15); Carbon Dioxide 25 mmol/L (20-30)
[2023-03-15 12:03] LABS: Calcium 9.3 mg/dL (8.5-10.1)
[2023-03-15 12:08] LABS: BUN/Creatinine Ratio 17.9 (10.0-20.0); Blood Urea Nitrogen 28 mg/dL (9-23); Glucose 227 mg/dL (74-106)
[2023-03-15 12:11] LABS: INR 0.97 (0.9-1.15); Partial Thromboplastin Time 28.3 SEC (24.5-34.5); Prothrombin Time 10.2 sec (9.3-11.8)
[2023-03-15 12:26] LABS: Urine Bacteria MANY /hpf (None Seen); Urine Blood TRACE /uL (Negative); Urine Budding Yeast MODERATE /hpf (None Seen); Urine Clarity HAZY (Clear); Urine Color Yellow (Yellow); Urine Protein, UAD 2+ (Negative); Urine Specific Gravity 1.015 (1.001-1.035); Urine Urobilinogen Normal (Negative); Urine WBC 46 /hpf (0 - 5)
[2023-03-15] MEDS ORDERED: DEXTROSE (50%) 50ML SYRG IV PRN (15:45)
[2023-03-15] MEDS ORDERED: MORPHINE SULFATE INJ 2 MG/ml SYRG IV PRN ×2 (15:45)
[2023-03-15] MEDS ORDERED: ONDANSETRON HCL 4 MG/2 ML VIAL IV PRN (15:45)
[2023-03-15] MEDS ORDERED: NITROGLYCERIN 0.4 MG SL TAB SL PRN (15:45)
[2023-03-15] MEDS ORDERED: DOCUSATE SOD 100 MG CAP PO PRN (15:45)
[2023-03-15] MEDS ORDERED: ASPI-325 PO (15:48)
[2023-03-15] MEDS ORDERED: ATOR10TA52 PO (15:48)
[2023-03-15] MEDS ORDERED: SACU1TAB4 PO (15:48)
[2023-03-15] MEDS ORDERED: AMLO1TAB23 PO (15:48)
[2023-03-15] MEDS ORDERED: CARV3.1240 PO (15:48)
[2023-03-15] MEDS: cefTRIAXone 1GM/50ML D5W 50 ML IV ONE (15:49)
[2023-03-15 15:56] VITALS: BP 170/70; PULSE 72; RESP 18; TEMP 98.7; O2SAT 97
[2023-03-15] MEDS ORDERED: hydrALAZINE HCL 20 MG/ML VL IV PRN (16:00)
[2023-03-15] MEDS ORDERED: IPRATROPIUM BROM 0.5 MG/2.5ML INH SOL NEB PRN (16:00)
[2023-03-15] MEDS ORDERED: ALBUTEROL SULF 2.5 MG/0.5ML(0.5%) NEB SOLN NEB PRN (16:00)
[2023-03-15 17:23] LABS: Triglycerides 158 mg/dL (< 150)
[2023-03-15 17:24] LABS: LDL Cholesterol 166 mg/dL (< 100)
[2023-03-15 17:25] LABS: Cholesterol 245 mg/dL (< 200); HDL Cholesterol 63 mg/dL (40-59)
[2023-03-15] MEDS: ACCU-CHEK COMFORT CURVE STRIP VI SCH (19:48)
[2023-03-15] MEDS: InsuLIN REG 1unit/0.01ml Soln (100units/ml) SC SCH (19:48)
[2023-03-15] MEDS: PANTOPRAZOLE 40 MG TAB PO ONE (19:52)
[2023-03-15] MEDS: SODIUM CHLORIDE 0.9% 1,000 ML IV ONE (19:52)
[2023-03-15 21:19] LABS: COVID19 ANTIGEN SOFIA FIA NEGATIVE (NEGATIVE)
[2023-03-15] MEDS ORDERED: SACUBITRIL VALSARTAN PO SCH (22:00)
[2023-03-15] MEDS: SACUBITRIL-VALSARTAN 24mg/26mg TAB PO SCH (23:29)
[2023-03-15] MEDS: ATORVASTATIN 20 MG TAB PO SCH (23:29)
[2023-03-15] MEDS: CARVEDILOL 12.5 MG TAB PO SCH (23:30)
[2023-03-16] VITALS (8 sets, daily range): BP systolic 129–161; BP diastolic 64–82; PULSE 54–68; RESP 17–20; TEMP 97.7–98.1; O2SAT 92–98
[2023-03-16] MEDS: ACETAMINOPHEN 325 MG TAB PO PRN (00:56)
[2023-03-16 06:02] LABS: Basophils # (auto) 0.1 10 ^3/uL (0-0.2); Basophils % (auto) 2.3 % (0.0-2.0); Eosinophils # (auto) 0.3 10 ^3/uL (0-0.8); Eosinophils % (auto) 4.8 % (0.0-7.0); Hematocrit 31.7 % (36.0-46.0); Hemoglobin 10.1 g/dL (12.2-16.2); Lymphocytes # (auto) 1.3 10 ^3/uL (0.4-5.4); Lymphocytes % (auto) 20.3 % (10.0-50.0); Mean Corpuscular Hemoglobin 26.6 pg (28.0-32.0); Mean Corpuscular Hgb Conc. 31.9 g/dL (32.0-36.0); Mean Corpuscular Volume 83.5 fL (80.0-100.0); Monocytes # (auto) 0.8 10 ^3/uL (0-1.3); Monocytes % (auto) 12.7 % (0.0-12.0); Neutrophils # (auto) 3.9 10 ^3/uL (1.6-8.6); Neutrophils % (auto) 59.9 % (37.0-80.0); Nucleated Red Blood Cells % 0.3 %; Red Cell Distribution Width 14.2 % (11.8-14.3); White Blood Cell 6.5 10^3/uL (4.4-10.8)
[2023-03-16 06:12] LABS: Alanine Aminotransferase 11 U/L (7-40); Alkaline Phosphatase 79 U/L (46-116); Anion Gap 7 (5-15); Aspartate Aminotransferase 16 U/L (13-40); BUN/Creatinine Ratio 17.9 (10.0-20.0); Blood Urea Nitrogen 29 mg/dL (9-23); Calcium 8.8 mg/dL (8.5-10.1); Carbon Dioxide 22 mmol/L (20-30); Chloride 108 mmol/L (98-107); Glucose 123 mg/dL (74-106); Sodium 137 mmol/L (136-145)
[2023-03-16 06:13] LABS: Albumin 3.6 g/dL (3.2-4.8); Bilirubin, Total 0.5 mg/dL (0.2-1.0); Total Protein 6.3 g/dL (5.7-8.2)
[2023-03-16] MEDS ORDERED: CARVEDILOL 3.125 MG TAB PO SCH (10:00)
[2023-03-16] MEDS ORDERED: PATIENTS OWN MEDICATION (Atorvastatin Calcium 1 TAB) PO SCH (10:00)
[2023-03-16] MEDS ORDERED: PATIENTS OWN MEDICATION (Amlodipine Besylate 1 TAB) PO SCH (10:00)
[2023-03-16] MEDS: ASPirin-EC 81 mg tab PO SCH (10:45)
[2023-03-16] MEDS: CLOPIDOGREL BISULFATE 75 MG TAB PO SCH (10:45)
[2023-03-16] MEDS: cefTRIAXone 1GM/50ML D5W 50 ML IV SCH (10:45)
[2023-03-16] MEDS: PANTOPRAZOLE 40 MG TAB PO SCH (10:45)
[2023-03-16] MEDS: amLODIPine BESYLATE 5 MG TAB PO SCH (10:45)
[2023-03-16] MEDS ORDERED: METF-372 PO (15:14)
[2023-03-16] MEDS ORDERED: HYDR-3682 PO (15:14)
[2023-03-16] MEDS ORDERED: PRED1SUS4 LEFTEYE (15:14)
[2023-03-16] MEDS ORDERED: HYDR12.59 PO (15:14)
[2023-03-16] MEDS: HYDROcodone-ACET 5/325MG TAB PO PRN (19:48)
[2023-03-16] MEDS: ATORVASTATIN 20 MG TAB PO SCH (22:33)
[2023-03-16] MEDS: hydrALAZINE HCL 20 MG/ML VL IV PRN (22:39)
[2023-03-17] VITALS (10 sets, daily range): BP systolic 131–166; BP diastolic 60–88; PULSE 57–73; RESP 17–22; TEMP 97.9–98.5; O2SAT 93–98
[2023-03-17 06:59] LABS: Alanine Aminotransferase 16 U/L (7-40); Albumin 3.6 g/dL (3.2-4.8); Alkaline Phosphatase 77 U/L (46-116); Anion Gap 7 (5-15); Aspartate Aminotransferase 23 U/L (13-40); BUN/Creatinine Ratio 17.4 (10.0-20.0); Blood Urea Nitrogen 30 mg/dL (9-23); Carbon Dioxide 23 mmol/L (20-30); Chloride 107 mmol/L (98-107); Glucose 137 mg/dL (74-106); Potassium 4.3 mmol/L (3.5-5.1); Sodium 137 mmol/L (136-145)
[2023-03-17 07:00] LABS: Bilirubin, Total 0.6 mg/dL (0.2-1.0); Total Protein 6.3 g/dL (5.7-8.2)
[2023-03-17 07:52] LABS: Basophils # (auto) 0.1 10 ^3/uL (0-0.2); Basophils % (auto) 2.2 % (0.0-2.0); Eosinophils # (auto) 0.3 10 ^3/uL (0-0.8); Eosinophils % (auto) 5.3 % (0.0-7.0); Hematocrit 30.5 % (36.0-46.0); Hemoglobin 9.7 g/dL (12.2-16.2); Lymphocytes # (auto) 1.5 10 ^3/uL (0.4-5.4); Lymphocytes % (auto) 24.8 % (10.0-50.0); Mean Corpuscular Hgb Conc. 31.9 g/dL (32.0-36.0); Mean Corpuscular Volume 84.4 fL (80.0-100.0); Monocytes # (auto) 0.7 10 ^3/uL (0-1.3); Monocytes % (auto) 11.9 % (0.0-12.0); Neutrophils # (auto) 3.4 10 ^3/uL (1.6-8.6); Neutrophils % (auto) 55.8 % (37.0-80.0); Red Blood Cells 3.61 10^6/uL (4.0-5.20); Red Cell Distribution Width 14.1 % (11.8-14.3); White Blood Cell 6.1 10^3/uL (4.4-10.8)
[2023-03-17] MEDS: hydrALAZINE HCL 25 MG TAB PO SCH (21:56)
[2023-03-18] VITALS (11 sets, daily range): BP systolic 124–145; BP diastolic 63–71; PULSE 64–73; RESP 16–22; TEMP 97.9–98.4; O2SAT 93–98
[2023-03-18 07:27] LABS: Alanine Aminotransferase 16 U/L (7-40); Albumin 3.6 g/dL (3.2-4.8); Alkaline Phosphatase 80 U/L (46-116); Anion Gap 8 (5-15); Aspartate Aminotransferase 21 U/L (13-40); BUN/Creatinine Ratio 16.2 (10.0-20.0); Bilirubin, Total 0.6 mg/dL (0.2-1.0); Blood Urea Nitrogen 30 mg/dL (9-23); Calcium 8.9 mg/dL (8.5-10.1); Carbon Dioxide 22 mmol/L (20-30); Chloride 106 mmol/L (98-107); Glucose 131 mg/dL (74-106); Potassium 4.4 mmol/L (3.5-5.1); Sodium 136 mmol/L (136-145); Total Protein 6.3 g/dL (5.7-8.2)
[2023-03-18 07:29] LABS: Basophils # (auto) 0.1 10 ^3/uL (0-0.2); Basophils % (auto) 1.8 % (0.0-2.0); Eosinophils # (auto) 0.3 10 ^3/uL (0-0.8); Eosinophils % (auto) 5.5 % (0.0-7.0); Hematocrit 28.7 % (36.0-46.0); Hemoglobin 9.4 g/dL (12.2-16.2); Lymphocytes # (auto) 1.4 10 ^3/uL (0.4-5.4); Lymphocytes % (auto) 23.5 % (10.0-50.0); Mean Corpuscular Hemoglobin 27.7 pg (28.0-32.0); Mean Corpuscular Hgb Conc. 32.7 g/dL (32.0-36.0); Mean Corpuscular Volume 84.5 fL (80.0-100.0); Monocytes # (auto) 0.7 10 ^3/uL (0-1.3); Monocytes % (auto) 11.2 % (0.0-12.0); Neutrophils # (auto) 3.4 10 ^3/uL (1.6-8.6); Nucleated Red Blood Cells % 0.1 %; Red Cell Distribution Width 14.2 % (11.8-14.3); White Blood Cell 5.9 10^3/uL (4.4-10.8)
[2023-03-18 08:47] LABS: Hepatitis B Surface Antigen Negative (Negative)
[2023-03-18 09:11] LABS: Hepatitis C Antibody Negative (Negative)
[2023-03-18] MEDS: ISOSORBIDE MONONITRATE ER 60 MG TAB PO SCH (10:09)
[2023-03-18 12:36] LABS: Phosphorus 4.1 mg/dL (2.4-5.1)
[2023-03-19] VITALS (8 sets, daily range): BP systolic 107–133; BP diastolic 56–64; PULSE 54–73; RESP 16–20; TEMP 97.7–98.4; O2SAT 93–96
[2023-03-19 06:08] LABS: Basophils # (auto) 0.1 10 ^3/uL (0-0.2); Basophils % (auto) 1.7 % (0.0-2.0); Eosinophils # (auto) 0.3 10 ^3/uL (0-0.8); Eosinophils % (auto) 4.7 % (0.0-7.0); Hematocrit 29.4 % (36.0-46.0); Hemoglobin 9.6 g/dL (12.2-16.2); Lymphocytes # (auto) 1.5 10 ^3/uL (0.4-5.4); Lymphocytes % (auto) 24.8 % (10.0-50.0); Mean Corpuscular Hemoglobin 27.4 pg (28.0-32.0); Mean Corpuscular Hgb Conc. 32.7 g/dL (32.0-36.0); Mean Corpuscular Volume 83.7 fL (80.0-100.0); Monocytes # (auto) 0.6 10 ^3/uL (0-1.3); Monocytes % (auto) 10.9 % (0.0-12.0); Neutrophils # (auto) 3.4 10 ^3/uL (1.6-8.6); Neutrophils % (auto) 57.9 % (37.0-80.0); Nucleated Red Blood Cells % 0.1 %; Red Blood Cells 3.52 10^6/uL (4.0-5.20); Red Cell Distribution Width 14.3 % (11.8-14.3); White Blood Cell 5.9 10^3/uL (4.4-10.8)
[2023-03-19 06:29] LABS: Alanine Aminotransferase 16 U/L (7-40); Albumin 3.7 g/dL (3.2-4.8); Alkaline Phosphatase 83 U/L (46-116); Anion Gap 8 (5-15); Aspartate Aminotransferase 18 U/L (13-40); BUN/Creatinine Ratio 17.6 (10.0-20.0); Bilirubin, Total 0.5 mg/dL (0.2-1.0); Blood Urea Nitrogen 35 mg/dL (9-23); Calcium 8.7 mg/dL (8.5-10.1); Carbon Dioxide 21 mmol/L (20-30); Chloride 107 mmol/L (98-107); Glucose 151 mg/dL (74-106); Potassium 4.2 mmol/L (3.5-5.1); Sodium 136 mmol/L (136-145); Total Protein 6.4 g/dL (5.7-8.2)
[2023-03-19 09:38] LABS: Protein, Urine 67.6 mg/dL (0.0-11.9)
[2023-03-19 09:40] LABS: Creatinine, Urine 56.01 mg/dL (30.0-125.0); Urine Protein/Creatinine Ratio 1.21
[2023-03-19] MEDS ORDERED: NITR-52 PO (14:21)
== END 2023-03-19 17:47 | disposition home or self-care (01) | DRG 190 ==
LOC: ER 10:49 → TELE 15:39 → TELE-CENTR 03-16 09:40
PROVIDERS: ADMIT Internal Medicine Pulmonary Disease; ATTEND Internal Medicine Pulmonary Disease
DX: I21.4 Non-ST elevation (NSTEMI) myocardial infarction (principal); N17.0 Acute kidney failure with tubular necrosis; I50.43 Acute on chronic combined systolic (congestive) and diastolic (congestive) heart failure; I13.0 Hypertensive heart and chronic kidney disease with heart failure and stage 1 through stage 4 chronic kidney disease, or unspecified chronic kidney disease; D63.1 Anemia in chronic kidney disease; E66.9 Obesity, unspecified; I16.0 Hypertensive urgency; N18.32 Chronic kidney disease, stage 3b; E78.5 Hyperlipidemia, unspecified; Z20.822 Contact with and (suspected) exposure to COVID-19; N30.00 Acute cystitis without hematuria; I25.10 Atherosclerotic heart disease of native coronary artery without angina pectoris; E11.22 Type 2 diabetes mellitus with diabetic chronic kidney disease; Z95.1 Presence of aortocoronary bypass graft; Z98.61 Coronary angioplasty status; Z79.4 Long term (current) use of insulin; Z83.3 Family history of diabetes mellitus; Z82.49 Family history of ischemic heart disease and other diseases of the circulatory system; Z68.31 Body mass index [BMI] 31.0-31.9, adult
CPT/HCPCS: 36415; 71046; 76775; 80048; 80053; 80061; 81001; 82306; 82570; 82962; 83036; 83735; 83880; 83970; 84100; 84156; 84300; 84443; 84484; 85025; 85379; 85610; 85730; 86803; 87086; 87340; 87426; 93005; 93306; G0378; J1815

== ENCOUNTER 2023-11-23 20:29 | Inpatient (IN) | payer MEDICAID ==
[~2023-11-23] VITALS: Ht 167.6 cm; Wt 52.0 kg
[2023-11-23 11:15] VITALS: BP 148/77; PULSE 61; RESP 17; TEMP 98; O2SAT 99
[~2023-11-23 20:29] MED LIST changes: +AMLO1TAB23 PO; +ASPI-325 PO; -ASPI-736 PO; +ATOR10TA52 PO; -ATOR40TA52 PO; +B-CO1TAB60 PO; -CAR3125T PO; +CARV3.1240 PO; -DOXY-448 PO; +HYDR-3682 PO; +HYDR12.59 PO; +METF-372 PO; +METO25TA36 PO; +NITR-52 PO; +PRED1SUS4 LEFTEYE; -SACU1TAB PO; +SACU1TAB4 PO
[2023-11-23 21:16] LABS: Basophils # (auto) 0.1 10 ^3/uL (0-0.2); Eosinophils # (auto) 0.2 10 ^3/uL (0-0.8); Hemoglobin 9.4 g/dL (12.2-16.2); Monocytes # (auto) 0.3 10 ^3/uL (0-1.3); Neutrophils # (auto) 3.4 10 ^3/uL (1.6-8.6); Nucleated Red Blood Cells % 0.1 %
[2023-11-23 21:18] LABS: Basophils % (auto) 2.8 % (0.0-2.0); Eosinophils % (auto) 3.8 % (0.0-7.0); Hematocrit 28.7 % (36.0-46.0); Lymphocytes % (auto) 19.6 % (10.0-50.0); Mean Corpuscular Hemoglobin 26.7 pg (28.0-32.0); Mean Corpuscular Hgb Conc. 32.8 g/dL (32.0-36.0); Mean Corpuscular Volume 81.4 fL (80.0-100.0); Monocytes % (auto) 5.2 % (0.0-12.0); Neutrophils % (auto) 68.6 % (37.0-80.0); Platelet Count (auto) 294 10^3/uL (140-450); Red Blood Cells 3.52 10^6/uL (4.0-5.20); Red Cell Distribution Width 16.9 % (11.8-14.3); White Blood Cell 4.9 10^3/uL (4.4-10.8)
[2023-11-23 21:20] LABS: Alanine Aminotransferase 14 U/L (7-40); Albumin 4.2 g/dL (3.2-4.8); Alkaline Phosphatase 62 U/L (46-116); Anion Gap 7 (5-15); Aspartate Aminotransferase 17 U/L (13-40); Blood Urea Nitrogen 38 mg/dL (9-23); Calcium 9.7 mg/dL (8.7-10.4); Carbon Dioxide 25 mmol/L (20-31); Chloride 107 mmol/L (98-107); Glucose 163 mg/dL (74-106); Magnesium 2.4 mg/dL (1.6-2.6); Potassium 3.8 mmol/L (3.5-5.1); Sodium 139 mmol/L (136-145)
[2023-11-23 21:21] LABS: Bilirubin, Total 0.7 mg/dL (0.2-1.0); Total Protein 7.9 g/dL (5.7-8.2)
[2023-11-23 21:34] VITALS: PULSE 18; RESP 18; O2SAT 92
[2023-11-23 21:48] LABS: INR 1.03 (0.9-1.15); Partial Thromboplastin Time 25.9 SEC (24.5-34.5); Prothrombin Time 10.9 sec (9.3-11.8)
[2023-11-23] MEDS: ACCU-CHEK COMFORT CURVE STRIP VI SCH (22:00)
[2023-11-23] MEDS: FUROSEMIDE 40 MG/4 ML VIAL IV ONE (22:00)
[2023-11-23] MEDS ORDERED: NITROGLYCERIN 0.4 MG SL TAB SL PRN (22:15)
[2023-11-23] MEDS ORDERED: MORPHINE SULFATE INJ 2 MG/ml SYRG IV PRN (22:15)
[2023-11-23 22:34] LABS: Urine Bacteria None Seen /hpf (None Seen)
[2023-11-23 22:58] LABS: Amphetamine Screen, Urine Neg (NEGATIVE); Barbiturate Scree,Urine Neg (NEGATIVE); Benzodiazephine Screen, Urine Neg (NEGATIVE); Cannabinoid Screen, Urine Neg (NEGATIVE); Cocaine Screen, Urine Neg (NEGATIVE); Opiate Scree,Urine Neg (NEGATIVE); Phencyclidine Screen, Urine Neg (NEGATIVE); Urine Blood TRACE /uL (Negative); Urine Clarity Clear (Clear); Urine Color Light-Yellow (Yellow); Urine Protein, UAD 1+ (Negative); Urine Specific Gravity 1.009 (1.001-1.035); Urine Urobilinogen Normal (Negative); Urine WBC 10 /hpf (0 - 5); Urine pH 6.5 (5.0-9.0)
[2023-11-23] MEDS ORDERED: DEXTROSE (50%) 50ML SYRG IV PRN (23:00)
[2023-11-24] VITALS (9 sets, daily range): BP systolic 129–170; BP diastolic 67–81; PULSE 51–70; RESP 16–19; TEMP 97.8–98.4; O2SAT 93–100
[2023-11-24] MEDS: POTASSIUM EFFERVESENT TAB 25 MEQ PO ONE (01:49)
[2023-11-24] MEDS: INSULIN LANTUS (GLARGINE) 1 /0.01ml (100units/ml) SC ONE (01:52)
[2023-11-24] MEDS: PANTOPRAZOLE 40 MG/10 ML VIAL INJ IV ONE (01:55)
[2023-11-24] MEDS: InsuLIN REG 1unit/0.01ml Soln (100units/ml) SC SCH (01:55)
[2023-11-24] MEDS: ACETAMINOPHEN 500 MG TAB PO PRN (01:59)
[2023-11-24] MEDS: FUROSEMIDE 40 MG/4 ML VIAL IV SCH (05:44)
[2023-11-24 05:57] LABS: Basophils # (auto) 0.1 10 ^3/uL (0-0.2); Basophils % (auto) 2.9 % (0.0-2.0); Eosinophils # (auto) 0.2 10 ^3/uL (0-0.8); Eosinophils % (auto) 5.4 % (0.0-7.0); Hematocrit 26.7 % (36.0-46.0); Hemoglobin 8.9 g/dL (12.2-16.2); Lymphocytes # (auto) 1.3 10 ^3/uL (0.4-5.4); Lymphocytes % (auto) 28.1 % (10.0-50.0); Mean Corpuscular Hgb Conc. 33.2 g/dL (32.0-36.0); Mean Corpuscular Volume 81.3 fL (80.0-100.0); Monocytes # (auto) 0.4 10 ^3/uL (0-1.3); Monocytes % (auto) 8.5 % (0.0-12.0); Neutrophils # (auto) 2.5 10 ^3/uL (1.6-8.6); Neutrophils % (auto) 55.1 % (37.0-80.0); Platelet Count (auto) 265 10^3/uL (140-450); Red Blood Cells 3.28 10^6/uL (4.0-5.20); Red Cell Distribution Width 16.8 % (11.8-14.3); White Blood Cell 4.5 10^3/uL (4.4-10.8)
[2023-11-24 06:10] LABS: Chloride 107 mmol/L (98-107); Potassium 3.6 mmol/L (3.5-5.1); Sodium 140 mmol/L (136-145)
[2023-11-24 06:11] LABS: Anion Gap 7 (5-15); Calcium 9.4 mg/dL (8.7-10.4); Carbon Dioxide 26 mmol/L (20-31)
[2023-11-24 06:16] LABS: Blood Urea Nitrogen 37 mg/dL (9-23); Glucose 70 mg/dL (74-106)
[2023-11-24 08:32] LABS: % Iron Saturation 14.7 % (15-50)
[2023-11-24] MEDS: ASPirin 81 mg TAB PO SCH (08:32)
[2023-11-24 08:53] LABS: Erythrocyte Sedimentation Rate 42 mm/hr (0-20)
[2023-11-24] MEDS: hydrALAZINE HCL 20 MG/ML VL IV PRN (13:05)
[2023-11-24] MEDS: CLOPIDOGREL BISULFATE 75 MG TAB PO ONE (13:06)
[2023-11-24] MEDS: cefTRIAXone 1GM/50ML D5W 50 ML IV ONE ×2 (13:06→13:12)
[2023-11-24] MEDS: amLODIPine BESYLATE 5 MG TAB PO ONE (15:59)
[2023-11-24 17:26] LABS: COVID19 ANTIGEN SOFIA FIA NEGATIVE (NEGATIVE)
[2023-11-24] MEDS: NIFEdipine ER 30 MG TAB PO SCH (21:24)
[2023-11-24] MEDS: ATORVASTATIN 20 MG TAB PO SCH (21:25)
[2023-11-25 01:00] VITALS: BP 125/74; PULSE 52; RESP 18; TEMP 98.2; O2SAT 100
[2023-11-25 05:00] VITALS: BP 114/70; PULSE 59; RESP 19; TEMP 98.6; O2SAT 100
[2023-11-25 07:34] LABS: Chloride 104 mmol/L (98-107); Potassium 3.6 mmol/L (3.5-5.1); Sodium 140 mmol/L (136-145)
[2023-11-25 07:35] LABS: Anion Gap 10 (5-15); Carbon Dioxide 26 mmol/L (20-31)
[2023-11-25 07:36] LABS: Calcium 9.7 mg/dL (8.7-10.4)
[2023-11-25 07:38] LABS: Basophils # (auto) 0.1 10 ^3/uL (0-0.2); Basophils % (auto) 3.9 % (0.0-2.0); Eosinophils # (auto) 0.2 10 ^3/uL (0-0.8); Eosinophils % (auto) 6.9 % (0.0-7.0); Hemoglobin 9.6 g/dL (12.2-16.2); Lymphocytes # (auto) 0.9 10 ^3/uL (0.4-5.4); Lymphocytes % (auto) 26.8 % (10.0-50.0); Mean Corpuscular Hemoglobin 27.1 pg (28.0-32.0); Mean Corpuscular Hgb Conc. 33.3 g/dL (32.0-36.0); Mean Corpuscular Volume 81.4 fL (80.0-100.0); Monocytes # (auto) 0.3 10 ^3/uL (0-1.3); Monocytes % (auto) 9.9 % (0.0-12.0); Neutrophils # (auto) 1.8 10 ^3/uL (1.6-8.6); Neutrophils % (auto) 52.5 % (37.0-80.0); Platelet Count (auto) 306 10^3/uL (140-450); Red Blood Cells 3.56 10^6/uL (4.0-5.20); Red Cell Distribution Width 16.6 % (11.8-14.3); White Blood Cell 3.5 10^3/uL (4.4-10.8)
[2023-11-25 07:40] LABS: BUN/Creatinine Ratio 15.5 (10.0-20.0); Blood Urea Nitrogen 42 mg/dL (9-23); Glucose 127 mg/dL (74-106)
[2023-11-25 08:00] VITALS: PULSE 56; PULSE 68; RESP 18; O2SAT 95
[2023-11-25 08:46] VITALS: BP 139/73; PULSE 55; RESP 16; TEMP 97.6; O2SAT 100
[2023-11-25] MEDS ORDERED: amLODIPine BESYLATE 5 MG TAB PO SCH (10:00)
[2023-11-25] MEDS: CLOPIDOGREL BISULFATE 75 MG TAB PO SCH (10:18)
[2023-11-25] MEDS: cefTRIAXone 1GM/50ML D5W 50 ML IV SCH (10:18)
[2023-11-25] MEDS ORDERED: FURO1TAB31 PO (12:20)
[2023-11-25 12:36] VITALS: BP 148/75; PULSE 57; RESP 18; TEMP 97.9; O2SAT 97
[2023-11-25 13:53] VITALS: BP 139/73; PULSE 57; RESP 17; TEMP 36.6; O2SAT 95
== END 2023-11-25 14:53 | disposition home or self-care (01) | DRG 194 ==
LOC: EDBD 20:29 → ER 20:29 → EDUNIT# 22:10 → TELE 22:10 → TELE-WESTW 22:11
PROVIDERS: ADMIT Internal Medicine Geriatric Medicine; ATTEND Internal Medicine Geriatric Medicine
DX: I13.0 Hypertensive heart and chronic kidney disease with heart failure and stage 1 through stage 4 chronic kidney disease, or unspecified chronic kidney disease (principal); N17.0 Acute kidney failure with tubular necrosis; I27.20 Pulmonary hypertension, unspecified; E44.1 Mild protein-calorie malnutrition; D63.1 Anemia in chronic kidney disease; N17.9 Acute kidney failure, unspecified; E11.22 Type 2 diabetes mellitus with diabetic chronic kidney disease; I25.10 Atherosclerotic heart disease of native coronary artery without angina pectoris; I50.43 Acute on chronic combined systolic (congestive) and diastolic (congestive) heart failure; E55.9 Vitamin D deficiency, unspecified; E78.5 Hyperlipidemia, unspecified; N39.0 Urinary tract infection, site not specified; E87.6 Hypokalemia; K76.0 Fatty (change of) liver, not elsewhere classified; N18.31 Chronic kidney disease, stage 3a; Z95.1 Presence of aortocoronary bypass graft; Z81.8 Family history of other mental and behavioral disorders; Z82.49 Family history of ischemic heart disease and other diseases of the circulatory system; Z68.1 Body mass index [BMI] 19.9 or less, adult
CPT/HCPCS: 36415; 71045; 71250; 76536; 80048; 80053; 80307; 81001; 82306; 82607; 82962; 83540; 83550; 83735; 83880; 84443; 84484; 84702; 85025; 85610; 85652; 85730; 86141; 87086; 87426; 93005; 99291; G0378; J1815; J2470